=== PATIENT | male | born 1985 | race Caucasian/White ===

== ENCOUNTER 2021-03-17 22:27 | Observation (INO) | payer MEDICAID, SELFPAY ==
[2021-03-17 22:30] VITALS: BP 128/93; PULSE 86; RESP 18; TEMP 36.9; O2SAT 97
[2021-03-17 22:59] LABS: Abs Immature Grans 0.03 10^3/uL (0.0-0.06); Absolute Basophil Count 0.08 10^3/uL (0.0-0.2); Absolute Eosinophil Count 0.23 10^3/uL (0.0-0.7); Absolute Lymphocyte Count 3.21 10^3/uL (1.2-3.4); Absolute Monocyte Count 0.67 10^3/uL (0.1-0.8); Absolute Neutrophil Count 5.32 10^3/uL (1.2-6.7); Basophils % 0.8; Eosinophils % 2.4; HCT 46.6 % (40.0-50.0); HGB 15.3 g/dL (13.5-17.5); Immature Grans % 0.3; Lymphocytes % 33.6; MCH 29.8 pg (27.0-33.0); MCHC 32.8 % (32.0-36.0); MCV 90.7 fL (80-95); MPV 9.7 fL (8.0-11.0); Neutrophils % 55.9; Nucleated RBC 0 %; Platelet Count 330 10^3/uL (130-400); RBC 5.14 10^6/uL (4.36-5.78); RDW 12.2 % (11.8-14.1); RDW-SD 40.6 fL; WBC 9.54 10^3/uL (4.4-10.8)
[2021-03-17 23:03] LABS: Bilirubin Negative (Negative); Blood Negative (Negative); Clarity Clear (Clear); Glucose Negative (Negative); Ketones Negative (Negative); Leukocyte Esterase Negative (Negative); Nitrite Negative (Negative); Specific Gravity >= 1.030 (1.005-1.025); Urobilinogen 0.2 EU/dL (Up TO 0.2)
[2021-03-17 23:13] LABS: *AMPHETAMINES SCREEN URINE Negative (Negative); *BARBITURATES SCREEN URINE Negative (Negative); *BENZODIAZEPINES SCREEN URINE Negative (Negative); Cannabinoids THC Negative (Negative); Cocaine Screen,Urine Negative (Negative); METHADONE URINE SCREEN Negative (Negative); OPIATES URINE SCREEN Negative (Negative)
[2021-03-17 23:14] LABS: Salicylate < 2.8 mg/dL (<2.8)
[2021-03-17 23:16] LABS: Tricyclic Antidepressants Negative (Negative)
--- NOTE | 2021-03-17 23:17 | W.ED.GENAD ---
Discharge Plan Disposition Patient Disposition: [facility] INPATIENT Condition: Stable Discharge Details Clinical Impression: Threatening to others Primary Care Provider: Unknown,Unknown ED Provider: Richard Moreno Home Meds and New Rx's Prescriptions: No Action bupropion HCl [Wellbutrin XL] 300 mg tablet extended release 24 hr 300 mg PO QAM Qty: 90 RF: 3 bupropion HCl 150 mg tablet extended release 24 hr 150 mg PO QAM Qty: 90 RF: 1 nicotine [Nicoderm CQ] 14 mg/24 hr patch 24 hour 1 patch transdermal DAILY Qty: 14 RF: 1 hydroxyzine HCl 25 mg tablet 50 mg PO QHS PRN (Reason: sleep) Qty: 180 RF: 3 sertraline 50 mg tablet 50 mg PO DAILY Qty: 90 RF: 1 Medical Decision Making 35 yo male who has a history of depression, anxiety, former alcohol abuse sober for over 4 months per patient, who denies drug use, comes in with mental health after he made threatening statements on facebook. Mental health reports that he resides at a intermediate house and apparently was making threats towards people on facebook which is why mental health was contacted. THey evaluated him and he did not seem concerned with what he had done/written. She felt he should be hospitalized for his threats he was making and he agreed to a voluntary psychiatric placement and was brought here. He is calm and cooperative on arrival. Is ambulatory without assistance with normal gait. He is caox4 with clear speech and has no complaints on exam. He denies drug use and denies SI. He states he does remember making the statements on facebook earlier and when asked if he still feels this way he shrugs his shoulders. He has no focal neuro deficits on exam. Will obtain routine labs and will need to stay at [facility] until psychiatric bed placement is found pt stable and labs unremarkable, no psych beds available, spoke who hospitalist who accepts for admission Differential Diagnosis Differential Diagnosis: homicidal, delerium, depression Lab Data Lab results reviewed: Yes I reviewed the patient's lab results. HPI General Mode of arrival: ambulatory. Date/Time Provider Initiated Documentation: 03/17/21 22:29. Limitations to Documentation: no limitations. Information obtained by: patient. History of Present Illness 35 year old M presents to the emergency department with the chief complaint of made threats on facebook, Patient started experiencing this day(s) (1) No relieving factors improve symptom(s), No exacerbating factors reported . Patient notes no other symptoms.. Related Data Home Medications Medication Instructions Recorded Confirmed bupropion HCl 300 mg 24 hr tablet, 300 mg PO QAM #90 tab 12/31/20 02/25/21 extended release bupropion HCl 150 mg 24 hr tablet, 150 mg PO QAM #90 tab 02/25/21 02/25/21 extended release hydroxyzine HCl 25 mg tablet 50 mg PO QHS PRN #180 tab 02/25/21 03/17/21 nicotine 14 mg/24 hr daily 1 patch TRANSDERMAL DAILY #14 ea 02/25/21 02/25/21 transdermal patch sertraline 50 mg tablet 50 mg PO DAILY #90 tab 02/25/21 02/25/21 Previous Rx's Medication Instructions Recorded bupropion HCl 300 mg 24 hr tablet, 300 mg PO QAM #90 tab 12/31/20 extended release bupropion HCl 150 mg 24 hr tablet, 150 mg PO QAM #90 tab 02/25/21 extended release hydroxyzine HCl 25 mg tablet 50 mg PO QHS PRN #180 tab 02/25/21 nicotine 14 mg/24 hr daily 1 patch TRANSDERMAL DAILY #14 ea 02/25/21 transdermal patch sertraline 50 mg tablet 50 mg PO DAILY #90 tab 02/25/21 Allergies Allergy/AdvReac Type Severity Reaction Status Date / Time No Known Allergies Allergy Verified 12/31/20 14:45 Review of Systems All systems reviewed & are unremarkable except as noted in HPI and below Constitutional Constitutional: Denies chills, Denies fever(s) and Denies weakness ENT Ears, Nose, Mouth, and Throat: Denies change in voice Cardiovascular Cardiovascular: Denies chest pain and Denies dyspnea Respiratory Respiratory: Denies cough and Denies dyspnea Gastrointestinal Gastrointestinal: Denies abdominal pain, Denies nausea and Denies vomiting Musculoskeletal Musculoskeletal: Denies joint swelling Neurologic Neurologic: Denies weakness [facility] Social History (Updated 02/25/21 @ 12:40 by Rosi Beck LPN) Smoking/Tobacco Use Status: Former Tobacco Use tobacco type: cigarettes Quit status: quit date established (quit 12/07/20) Smoking risk assessment performed?: Yes Alcohol Intake: former Previous attempts at quittin Counseling given: Yes (talking with a counselor) Drug use: Current Sobriety Substance use type: former substance user and marijuana Adopted: No Caregiver/Support person: No Foster care: No Household members: other Details: sober housing Housing: homeless Number of Children: 0 Communication Needs: None Education Level: high school Do you need help understanding health information?: Rarely 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 [employer] Pets and animals: No Sexually active: No Do you think of yourself as: straight/heterosexual Current gender identity: male What is your relationship status?: never How often do you talk on the phone with friends or family?: decline to answer How often do you get together with friends or relatives?: decline to answer Panel score (0-1 are the most socially isolated patients): 0 Janna/Scientology: Buddhist Special janna needs: No Seatbelt use: always Helmet use: Yes Helmet use: never Drive intox or ride w/intox fast food delivery driver: No Working smoke detector in home: Yes Fire extinguisher in home: Yes Carbon monox detector in home: Yes Do you feel safe at home: Yes Exam Const General: no acute distress Orientation: alert HENWY Head: normal to inspection Ears: external ears normal General nose exam: external nose normal Mouth: moist mucous membranes Eyes General: appearance normal, both eyes and all related structures Neck Neck: normal visual inspection Resp Effort & Inspection: normal respiratory effort and able to speak in complete sentences Cardio Rate: regular rate Skin General skin exam: no rashes or lesions noted Neuro General: patient alert and patient oriented x3 Extrem General: normal to inspection Psych Mental Status: mental status grossly normal Course Lab/Test Results Lab/Test Results: Laboratory Tests Range/Units 03/17/21 03/17/21 03/17/21 22:52 22:52 22:52 WBC (4.4-10.8) 10^3/uL 9.54 RBC (4.36-5.78) 10^6/uL 5.14 Hgb (13.5-17.5) g/dL 15.3 Hct (40.0-50.0) % 46.6 MCV (80-95) fL 90.7 MCH (27.0-33.0) pg 29.8 MCHC (32.0-36.0) % 32.8 RDW (11.8-14.1) % 12.2 Plt Count (130-400) 10^3/uL 330 MPV (8.0-11.0) fL 9.7 Immature Gran % 0.3 Neutrophils % 55.9 Lymphocytes % 33.6 Monocytes % 7.0 Eosinophils % 2.4 Basophils % 0.8 Nucleated RBC % % 0 Absolute Neutrophils (1.2-6.7) 10^3/uL 5.32 Absolute Lymphocytes (1.2-3.4) 10^3/uL 3.21 Absolute Monocytes (0.1-0.8) 10^3/uL 0.67 Absolute Eosinophils (0.0-0.7) 10^3/uL 0.23 Absolute Basophils (0.0-0.2) 10^3/uL 0.08 Urine Color (Yellow) Yellow Urine Clarity (Clear) Clear Urine pH (5-8) 6.0 Ur Specific [place] (1.005-1.025) >= 1.030 H Urine Protein (Negative) mg/dL Negative Urine Ketones (Negative) mg/dL Negative Urine Blood (Negative) Negative Urine Nitrite (Negative) Negative Urine Bilirubin (Negative) Negative Urine Urobilinogen (Up TO 0.2) EU/dL 0.2 Ur Leukocyte Esterase (Negative) Negative Urine Glucose (Negative) mg/dL Negative Urine Opiates Screen (Negative) Negative Urine Methadone Screen (Negative) Negative Ur Barbiturates Screen (Negative) Negative Ur Tricyclics Screen (Negative) Negative Ur Amphetamines Screen (Negative) Negative U Benzodiazepines Scrn (Negative) Negative Urine Cocaine Screen (Negative) Negative Ur THC Screen (Negative) Negative
[2021-03-17 23:18] LABS: ALT 42 U/L (16-63); AST 18 U/L (15-37); Albumin 4.3 g/dL (3.4-5.0); Alkaline Phosphatase 97 U/L (46-116); Anion Gap 8.5 mmol/L (3-11); BUN 19 mg/dL (7-18); Bilirubin, Total 0.3 mg/dL (0.2-1.0); CO2 30.5 mmol/L (21.0-32.0); CREATININE 1.1 mg/dL (0.70-1.30); Calcium 9.1 mg/dL (8.5-10.1); Chloride 104 mmol/L (98-107); Glucose 89 mg/dL (74-106); Potassium 3.8 mmol/L (3.5-5.1); Sodium 143 mmol/L (136-145); Total Protein 7.4 g/dL (6.4-8.2)
[2021-03-17 23:19] LABS: Acetaminophen < 2 ug/mL (10-30)
[2021-03-17 23:25] LABS: ETHANOL BLOOD < 3.0 mg/dL (<3)
[2021-03-17] MEDS: hydrOXYzine PAMOATE 25 MG CAP 50 MG PO (23:25)
[2021-03-17 23:57] LABS: Source Nasal/Nares
--- NOTE | 2021-03-18 | W.PM.HP.N ---
Date of service: 03/17/21 Time of Service: 23:55 Assessment and Plan Assessment and plan (1) Homicidal ideation: Start date: 03/17/21 Status: Acute Assessment and plan: This is a 35-year-old gentleman who was having thoughts of harming others though is nonspecific to this examiner whether they were actually homicidal but severe to where mental health gait the patient no choice as to being admitted for psychiatric evaluation and treatment. Patient voluntary because he felt that he would be involuntarily admitted if he refused. He is cooperating and he is open to inpatient psychiatric evaluation and treatment. 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 He had not been drinking alcohol recently urine drug screen and alcohol screens were negative upon admission. Mental health consultation is in place with inpatient placement voluntarily being investigated. (2) Depression: Status: Chronic Assessment and plan: Patient will be continued on Wellbutrin ER 450 mg with sertraline 50 mg daily. He also has hydroxyzine to aid with insomnia. Qualifiers: Active/Remission status: currently active Depression Type: major depressive disorder Major depression episode severity: moderate Major depression recurrence: recurrent Qualified Code(s): F33.1 - Major depressive disorder, recurrent, moderate (3) Nicotine dependence, other tobacco product, in remission: Status: Chronic Assessment and plan: Patient states that he has not been smoking recently and was offered NicoDerm transdermal patch which is on his outpatient medication list, this should be reconciled. History of Present Illness History of Present Illness Chief Complaint: Homicidal ideation Narrative: This is a 35-year-old male patient who states that he lives in his own apartment but was reportedly in a [facility] house where he was having conflict with other people on Facebook making threatening remarks about doing harm to people in his surroundings. He was reported to the face by Nafisa which is a girl that he is not not familiar with by his verbal history. History of first significant benefit decreased recall slipping a month after mental health was involved and he stated that he did not have a choice that time and voluntarily which he has done. He is willing to be placed in inpatient psychiatric care for evaluation. He has never had inpatient psychiatric care by history. He has been sober for 4 months having previous alcohol abuse. 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 He is calm during conversation and manifesting no abnormal thought processes but is withdrawn somewhat during conversation is confrontational and passive as to either admitting or denying accusations which brought him to the hospital. I am not aware of his actual remarks on Facebook that there was significant enough to where there was concern for significant harm such as homicide. He did not manifest any specific thoughts toward others to the examiner. Patient did not admit to any increased anxiety or agitation and agitated has minimal conversation. Review of Systems Narrative: 13 point review of systems otherwise unrevealing or stable. [facility] Social History (Updated 02/25/21 @ 12:40 by Rosi Beck LPN) Smoking/Tobacco Use Status: Former Tobacco Use tobacco type: cigarettes Quit status: quit date established (quit 12/07/20) Smoking risk assessment performed?: Yes Alcohol Intake: former Previous attempts at quittin Counseling given: Yes (talking with a counselor) Drug use: Current Sobriety Substance use type: former substance user and marijuana Details: Currently lives in a Sober House and has been sober x 4 months. Using Nicotine patch to quit smoking. 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 [employer] Pets and animals: No Sexually active: No Do you think of yourself as: straight/heterosexual Current gender identity: male What is your relationship status?: never How often do you talk on the phone with friends or family?: decline to answer How often do you get together with friends or relatives?: decline to answer Panel score (0-1 are the most socially isolated patients): 0 Janna/Congregation: Voodoo Special janna needs: No Seatbelt use: always Helmet use: Yes Helmet use: never Drive intox or ride w/intox furniture mover driver: No Working smoke detector in home: Yes Fire extinguisher in home: Yes Carbon monox detector in home: Yes Do you feel safe at home: Yes Do you feel safe in your relationship?: Yes Meds Allergies and Home Medications Allergies Allergy/AdvReac Type Severity Reaction Status Date / Time No Known Allergies Allergy Verified 12/31/20 14:45 Home Medications Medication Instructions Recorded Confirmed Type bupropion HCl 300 mg 24 hr tablet, 300 mg PO QAM #90 tab 12/31/20 03/18/21 Rx extended release bupropion HCl 150 mg 24 hr tablet, 150 mg PO QAM #90 tab 02/25/21 03/18/21 Rx extended release hydroxyzine HCl 25 mg tablet 50 mg PO QHS PRN #180 tab 02/25/21 03/18/21 Rx nicotine 14 mg/24 hr daily 1 patch TRANSDERMAL DAILY #14 ea 02/25/21 03/18/21 Rx transdermal patch sertraline 50 mg tablet 50 mg PO DAILY #90 tab 02/25/21 03/18/21 Rx Exam Narrative Exam Narrative: General: Patient appears appropriate for age, slightly flattened affect with fair eye contact. He is alert and oriented x3. He is in no acute distress. He is well-groomed, thin body build with mesomorphic features and appears overall healthy. HEENT: Normocephalic, eyes with pupils equal and reactive to light symmetrically, extraocular movement intact and sclera anicteric. Neck: Supple without JVD and no palpable thyromegaly. Back: Normal posture without CVA tenderness. Lungs: Clear to auscultation and percussion with no adventitious sounds. Normal inspiratory to expiratory phase ratio. Heart: Regular rate and rhythm with no murmurs or gallops appreciated. Abdomen: Normal contour, soft nontender to palpation with no palpable hepatosplenomegaly. Genitalia/rectal: Exam deferred. Extremities: Without clubbing, cyanosis or pitting edema. Peripheral pulses intact. Skin: Tanned over sun exposed areas otherwise normal color, warm and dry. No rashes noted. Neuro: Cranial nerves II to XII grossly intact, no focalizing motor deficits. Psych: Flattened affect with little variation. Mood appears in different without depression or manic symptoms manifested during conversation. No abnormal thought processes with minimal conversation. Remote and recent memory appear to be grossly intact though there is discrepancy as to where the patient is living by history from the ED versus patient's history to this examiner. Results Labs Result diagrams: 03/18/21 06:35 03/18/21 06:35 Labs: Laboratory Results - last 24 hr 03/17/21 03/17/21 03/17/21 22:52 22:52 22:52 WBC 9.54 RBC 5.14 Hgb 15.3 Hct 46.6 MCV 90.7 MCH 29.8 MCHC 32.8 RDW 12.2 Plt Count 330 MPV 9.7 Immature Gran % 0.3 Neutrophils % 55.9 Lymphocytes % 33.6 Monocytes % 7.0 Eosinophils % 2.4 Basophils % 0.8 Nucleated RBC % 0 Absolute Neutrophils 5.32 Absolute Lymphocytes 3.21 Absolute Monocytes 0.67 Absolute Eosinophils 0.23 Absolute Basophils 0.08 Sodium 143 Potassium 3.8 Chloride 104 Carbon Dioxide 30.5 Anion Gap 8.5 BUN 19 H Creatinine 1.1 Estimated GFR/1.73 m2 >= 60.00 Glucose 89 Calcium 9.1 Total Bilirubin 0.3 AST 18 ALT 42 Alkaline Phosphatase 97 Total Protein 7.4 Albumin 4.3 TSH 3.20 Urine Color Urine Clarity Urine pH Ur Specific [place] Urine Protein Urine Ketones Urine Blood Urine Nitrite Urine Bilirubin Urine Urobilinogen Ur Leukocyte Esterase Urine Glucose Salicylates Urine Opiates Screen Urine Methadone Screen Acetaminophen < 2 Ur Barbiturates Screen Ur Tricyclics Screen Ur Amphetamines Screen U Benzodiazepines Scrn Urine Cocaine Screen Ur THC Screen Ethyl Alcohol < 3.0 COVID-19 Source 03/17/21 03/17/21 03/17/21 22:52 22:52 22:52 WBC RBC Hgb Hct MCV MCH MCHC RDW Plt Count MPV Immature Gran % Neutrophils % Lymphocytes % Monocytes % Eosinophils % Basophils % Nucleated RBC % Absolute Neutrophils Absolute Lymphocytes Absolute Monocytes Absolute Eosinophils Absolute Basophils Sodium Potassium Chloride Carbon Dioxide Anion Gap BUN Creatinine Estimated GFR/1.73 m2 Glucose Calcium Total Bilirubin AST ALT Alkaline Phosphatase Total Protein Albumin TSH Urine Color Yellow Urine Clarity Clear Urine pH 6.0 Ur Specific [place] >= 1.030 H Urine Protein Negative Urine Ketones Negative Urine Blood Negative Urine Nitrite Negative Urine Bilirubin Negative Urine Urobilinogen 0.2 Ur Leukocyte Esterase Negative Urine Glucose Negative Salicylates < 2.8 Urine Opiates Screen Negative Urine Methadone Screen Negative Acetaminophen Ur Barbiturates Screen Negative Ur Tricyclics Screen Negative Ur Amphetamines Screen Negative U Benzodiazepines Scrn Negative Urine Cocaine Screen Negative Ur THC Screen Negative Ethyl Alcohol COVID-19 Source 03/17/21 23:45 WBC RBC Hgb Hct MCV MCH MCHC RDW Plt Count MPV Immature Gran % Neutrophils % Lymphocytes % Monocytes % Eosinophils % Basophils % Nucleated RBC % Absolute Neutrophils Absolute Lymphocytes Absolute Monocytes Absolute Eosinophils Absolute Basophils Sodium Potassium Chloride Carbon Dioxide Anion Gap BUN Creatinine Estimated GFR/1.73 m2 Glucose Calcium Total Bilirubin AST ALT Alkaline Phosphatase Total Protein Albumin TSH Urine Color Urine Clarity Urine pH Ur Specific [place] Urine Protein Urine Ketones Urine Blood Urine Nitrite Urine Bilirubin Urine Urobilinogen Ur Leukocyte Esterase Urine Glucose Salicylates Urine Opiates Screen Urine Methadone Screen Acetaminophen Ur Barbiturates Screen Ur Tricyclics Screen Ur Amphetamines Screen U Benzodiazepines Scrn Urine Cocaine Screen Ur THC Screen Ethyl Alcohol COVID-19 Source Nasal/Nares Last Vital Signs Temp 36.9 C 03/17/21 22:30 Pulse 86 03/17/21 22:30 Resp 18 03/17/21 22:30 BP 128/93 H 03/17/21 22:30 Pulse Ox 97 03/17/21 22:30
[2021-03-18] MEDS: Nicotine 14 MG/24 HR PATCH TD (00:04)
[2021-03-18 00:50] LABS: COVID-19 PCR Negative (Negative)
[2021-03-18 00:57] VITALS: BP 126/81; PULSE 60; RESP 18; TEMP 36; O2SAT 97
[2021-03-18 06:46] VITALS: BP 119/78; PULSE 70; RESP 16; TEMP 36.7; O2SAT 100
[2021-03-18 07:21] LABS: Abs Immature Grans 0.04 10^3/uL (0.0-0.06); Absolute Basophil Count 0.06 10^3/uL (0.0-0.2); Absolute Eosinophil Count 0.29 10^3/uL (0.0-0.7); Absolute Lymphocyte Count 2.97 10^3/uL (1.2-3.4); Absolute Monocyte Count 0.71 10^3/uL (0.1-0.8); Absolute Neutrophil Count 3.81 10^3/uL (1.2-6.7); Basophils % 0.8; Eosinophils % 3.7; HCT 44.1 % (40.0-50.0); HGB 14.4 g/dL (13.5-17.5); Immature Grans % 0.5; Lymphocytes % 37.7; MCH 29.2 pg (27.0-33.0); MCHC 32.7 % (32.0-36.0); MCV 89.5 fL (80-95); MPV 10.2 fL (8.0-11.0); Neutrophils % 48.3; Nucleated RBC 0 %; Platelet Count 291 10^3/uL (130-400); RBC 4.93 10^6/uL (4.36-5.78); RDW 12.5 % (11.8-14.1); RDW-SD 41.1 fL; WBC 7.88 10^3/uL (4.4-10.8)
[2021-03-18 08:04] LABS: ALT 35 U/L (16-63); AST 17 U/L (15-37); Albumin 3.6 g/dL (3.4-5.0); Alkaline Phosphatase 72 U/L (46-116); BUN 18 mg/dL (7-18); Bilirubin, Total 0.7 mg/dL (0.2-1.0); CREATININE 1.1 mg/dL (0.70-1.30); Calcium 8.5 mg/dL (8.5-10.1); Chloride 107 mmol/L (98-107); Glucose 90 mg/dL (74-106); Potassium 3.3 mmol/L (3.5-5.1); Sodium 142 mmol/L (136-145); Total Protein 6.6 g/dL (6.4-8.2)
[2021-03-18] MEDS: buPROPion-XL 150 MG TABCR 450 MG PO (09:05)
[2021-03-18] MEDS: Sertraline 50 MG TAB PO (09:05)
--- NOTE | 2021-03-18 09:19 | PDOC.MHCN ---
Date of service: 03/17/21 Time of Service: 22:01 Mental Health Crisis Note Presenting Issue How did you arrive at the ED and why did you come: Client arrived to ED via [facility] transport. Client was brought in due to concerns of homicidal ideation and threats he made on facebook through a series of posts as well a suicidal statement he made which were shown to this clinician by [facility] officer. Client also reported that there were people out to get him and that someone had spread a rumor about him about 2.5 to 3 years ago and that he ad been harassed and threatened since then. Client also stated he had written mulitple letters to [facility] as well as the [place] president about this ti find answers and that they are refusing to tell him what's going on. Precipitating Factors Client denied SI/HI during this assessment. Client presented with some delusional and paranoid thinking. Disposition BEHAVIOR: Client presented as not forthcoming during this assessment and also contradicted himself a few times during this assessment. Client presented with poor insight, impaired judgment and poor thought process during this assessment. EYE CONTACT: Client maintained minimal eye contact and kept his eye down throughout this assessment. MOOD: Client presented with angry and irritable mood AFFECT: Client presented with flat affect APPETITE: Client reported he had good appetite SLEEP(trouble falling/staying asleep: Client reported difficulty falling and staying asleep. Plan This clinician was unable to safety plan with client based on the above stated concerns as well as client's current presentation during this assessment. This clinician also explained to client that based on the current concerns of homicidal ideations an EE or warrant may be sought the [facility] assessed and see this to be a necessary process in order to get him treatment. Client is agreeable to seeking treatment voluntarily at this time. None of his labs were ready at the time of this assessment and there no beds available at the time of this assessment as well. No referrals were sent to in-patient facilities at this time. Client will need to be reassessed daily by [facility] and a plan would be made based his presentation and the assessment made. Signature Clinician's Name/Title: Zahira Mcmahon / KIANNA clinician, [facility]
--- NOTE | 2021-03-18 09:34 | PDOC.MHCN ---
Date of service: 03/18/21 Time of Service: 09:34 Mental Health Crisis Note Presenting Issue How did you arrive at the ED and why did you come: Pt arrived on 03.17.2021 after police picked him up when a community member called them with concerns that he was making homicidal statements to her on her private messenger on Facebook. He was initially evaluated by JOSE EDUARDO Mcmahon and was informed that he accept voluntary or he would go involuntary due to the number of post also on his public Facebook account. Precipitating Factors Pt is denying SI and HI rating both on at a 0/10. Disposition BEHAVIOR: Pt is cooperative however, minimizing his behaviors on his Facebook page as well as threats being made to others. The message that the Pt sent to the unknown female read Thiago Skelton, my name is Lyle Carroll and I'm going around warning people that I will be inflicting serious pain, suffering and to the world soon, the only way to stop this is to kill me, so if you could let people know for me that I live at [address] [place] [address] in [facility], I would greatly appreciate it. Thank you (kissing [email or web address]). EYE CONTACT: Pt makes good eye contact. MOOD: Pt is diagnosed with depression and takes medications for this diagnosis. He presents and not affected by this situation. AFFECT: Affect is flat. APPETITE: Pt reported his appetite is fine. SLEEP(trouble falling/staying asleep: Pt reported that he slept fine last night. Plan Pt is still willing to accept voluntary admission understanding that if he wants to leave [facility] would seriously consider an EE/Warrant. At this time the Pt meets criteria for a hospital admission. This clinician and the medical staff are concerned about the Pt being released to the community without a through evaluation and treatment. Signature Clinician's Name/Title: Yoli Sheets MS, [facility] Emergency Services Clinician, [facility]
[2021-03-18 09:46] LABS: Magnesium 2.1 mg/dL (1.8-2.4)
[2021-03-18] MEDS: Potassium Chloride 20 MEQ TABCR 40 MEQ PO (09:59)
[2021-03-18] MEDS: Nicotine 2 MG LOZG SUC (12:20)
--- NOTE | 2021-03-18 13:42 | CMSP_ITS ---
- If Service Date Differs Date of service: 03/18/21 Time of Service: 13:42 Care Management Safety Plan Status: Voluntary - Reason for Wait Reason for Wait: Inpatient Admission Lyle is a 35 year old male voluntarily admitted to [facility] after evaluation by [facility]. Per report Lyle expresses HI towards people involved in the illuminati. He subsequently messaged an unrelated female through social media who alerted police about his threatening statements. CM coordinated a huddle with CC, RN Senior Portfolio Analyst, Primary RN, FATIMAH and CM. During huddle CM was informed that staff found a butter knife near pts room. Staff have been informed that paper utensils should be used in the transitional area by both pt and staff from this point forward. [facility] and [facility] are unfamiliar to patient, and close monitoring by staff is recommended. Up to this point he has been cooperative and pleasant in interaction, however staff must remain vigilant due to concerning nature of threats and follow safety plan as directed below. VOLUNTARY FOR INPATIENT PSYCHIATRIC STABILIZATION. Patient is appropriate in all interactions since arriving at [facility]; Pt has demonstrated appropriate coping and communication skills, has articulated his or her needs and concerns and is fully engaged during staff interactions. Safety plan has been established with patient, and care team, to adhere to patient goals, identify restrictions based on behavioral status, address nutrition, and determine allowed personal belongings, tools for hygiene and personal care. Determine level of activity including ambulation, level of supervision, visitors, and determine privileges based on behaviors and level of engagement by pt. SAFETY PLAN: 1. Will remain on suicide precautions. In Paper Clothes 2. Will remain in room under direct supervision of one-on-one staff at all times provided by [facility]; EDELMIRA, SAND WORKER drywall metal stud worker. 3. May have paper cups, plates, finger foods as well as a cardboard spoon with which to eat meals. 4. Follow [facility] Management of the Admitted Behavioral Health Patient policy. 5. Comfort bath system only. 6. No personal belongings 7. Visitors-No visitors at this time 8. Activities: Soft cart items at RN discretion, TV use ([facility] 9. Bathroom privileges in room without limitation 10. Phone: May use [facility] phone at RN discretion 11. Due to VOLUNTARY status, if patient wishes to leave [facility], staff will contact [facility] Crisis Screener ([phone]) and On-Call Facility Specialist ([phone]) as soon as possible. In the event of elopement, notify [facility] Police ([phone]). Patient is currently voluntarily at [facility] and seeking inpatient admission when a bed becomes available. [facility] Frontline Network Consultant will continue seeking placement. Please contact the N[facility] Facility Specialist ([phone]) and [facility] Network Consultant ([phone]) for any needed changes in the Safety Plan. Safety plan has been provided to interdepartmental care team.
--- NOTE | 2021-03-18 14:04 | CMPROGNOTE_ITS ---
- If Service Date Differs Date of service: 03/18/21 Time of Service: 14:04 Care Management Progress Note S/O: Lyle was partially sitting up in bed when CM met with him. He was polite, cooperative, easy to engage in conversation and asking for needs appropriately. CM coordinated a huddle with CC, RN Vp Research, Primary RN, [facility] and CM. 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 Lyle was brought to the ER last night by police after they received notification of a threatening message he sent to a girl that was unfamilar to him. Lyle has accepted voluntary admission to [facility] understanding that if he wants to leave [facility] would seriously consider an EE/Warrant. He is waiting for placement to a psych facility at this time. Referrals have been sent to [place], [place], [facility], [facility], [place] and [facility]. JEFFERY is currently [facility] CM notified [facility] department at at this time they are willing to provide transportation today. CM continues to support patient and discharge needs. A: 35 year old male admitted to [facility] on 03/17/21 for Homicidal Ideation and Depression. P: Lyle is aware that he is voluntarily admitted to [facility] at this time, however given the nature of his threats and social media posts [facility] will consider an EE/ Warrant if he decides to leave. Lyle has been medically cleared by Dr. Hurt to transfer to a psych facility via [facility] pending acceptance. He has never received inpatient psych treatment before and is willing to transfer to any with a bed offer. JEFFERY is waiting for a doc to doc review, and are awaiting next steps. Lyle will follow up with [facility] and out patient providers following discharge from Psych facility.
--- NOTE | 2021-03-18 14:43 | DSE_ITS ---
Date of service: 03/18/21 Time of Service: 14:43 DS: Diagnosis Discharge Diagnosis (1) Homicidal ideation: Status: Acute (2) Threatening to others: Status: Acute (3) Depression: Status: Chronic (4) Nicotine dependence, other tobacco product, in remission: Status: Chronic (5) Hypokalemia: Status: Resolved (6) COVID-19 ruled out by laboratory testing: Status: Ruled-out Discharge Plan Disposition Patient Disposition: [facility] Condition: Stable Discharge Details Reason For Visit: Homicidal Ideation, Depression Admit Date/Time: 03/17/21 23:52 Admit Provider: John Hernández Attending Provider: John Hernández Primary Care Provider: Unknown,Unknown Hospital Course Hospital Course: Mr Carroll is a 35 year old male with PMHx of anxiety and depression who was observed on [facility] hospitalist service from 03/17/21 until 03/18/21 while awaiting a psychiatric bed on voluntary basis having expressed homicidal and harmful ideation toward others on facebook.The patient was maintained on his home medications. He has been cooperative and has not demonstrated any violent or unsafe behavior. He did have mild hypokalemia on labs which has been repleted, so he has been medically cleared. He tested negative for COVID-19, but is not vaccinated against COVID-19, nor does he agree to the vaccine at this time despite counseling. He was accepted in transfer to [facility] for further psychiatric stabilization by Dr Moyer. He is medically stable for transfer. The list of medications below reflects the patient's outpatient medications. Please, look at MAR for list of his inpatient medications. Home Meds and New Rx's Prescriptions: No Action bupropion HCl [Wellbutrin XL] 300 mg tablet extended release 24 hr 300 mg PO QAM Qty: 90 RF: 3 bupropion HCl 150 mg tablet extended release 24 hr 150 mg PO QAM Qty: 90 RF: 1 nicotine [Nicoderm CQ] 14 mg/24 hr patch 24 hour 1 patch transdermal DAILY Qty: 14 RF: 1 hydroxyzine HCl 25 mg tablet 50 mg PO QHS PRN (Reason: sleep) Qty: 180 RF: 3 sertraline 50 mg tablet 50 mg PO DAILY Qty: 90 RF: 1 Discharge Instructions Stand Alone Forms: Nursing Discharge Form Activity:: Activity as Tolerated Equipment/Supplies:: No Equipment Needed Diet:: As Tolerated Discharge Orders Discharge Orders: Discharge Order (Routine); Ordered 03/18/21 Ordered By: Azra Hurt DS: Summary Time Spent with Patient providing and/or coordinating discharge services: Greater than 30 minutes Status at Discharge Functional status at discharge: independent ambulation Overall status at discharge: patient is not back to baseline Mental Status: mental status grossly normal Speech and Movement: speech and movement normal Mood: congruent mood Affect: normal affect Exam Narrative Exam Narrative: General: Pleasant and polite male, A&Ox3, sitting up comfortably in bed, not in acute distress HEENT: EOMI, MMM Heart: RRR< no m/r/g Lungs: CTAB Abdomen: soft, nontender, nondistended Extremities: no edema BLE's Psych Mental Status: mental status grossly normal Speech and Movement: speech and movement normal Mood: congruent mood Affect: normal affect DS: Data Vitals/I&O Vitals and I&O: Vital Signs Temperature 36.7 C 03/18/21 06:46 Temperature Source Tympanic 03/18/21 06:46 Pulse 70 03/18/21 06:46 Pulse Rhythm Regular 03/18/21 09:00 Respiratory Rate 16 03/18/21 06:46 Respiratory Effort Non-Labored 03/18/21 09:00 Respiratory Depth Normal 03/18/21 09:00 Respiratory Pattern Normal 03/18/21 09:00 Blood Pressure 119/78 03/18/21 06:46 Blood Pressure Position Sitting 03/17/21 22:30 Pulse Oximetry 100 03/18/21 06:46 Oxygen Delivery Method Room Air 03/18/21 06:46 Oxygen Flow Rate 0 03/18/21 06:46 Pain Level 0 03/18/21 06:46 Intake & Output 03/17/21 03/18/21 03/18/21 23:59 11:59 23:59 Intake Total 360 / 960 600 / 960 Balance 360 / 960 600 / 960 Weight 81.647 kg 81.647 kg Intake: Oral 360 / 960 600 / 960 Other: Voiding Methods Toilet Data Completed and Pending Labs on day of discharge: Labs from last 24 hours 03/18/21 03/18/21 03/18/21 06:35 06:35 06:35 WBC 7.88 RBC 4.93 Hgb 14.4 Hct 44.1 MCV 89.5 MCH 29.2 MCHC 32.7 RDW 12.5 Plt Count 291 MPV 10.2 Immature Gran % 0.5 Neutrophils % 48.3 Lymphocytes % 37.7 Monocytes % 9.0 Eosinophils % 3.7 Basophils % 0.8 Nucleated RBC % 0 Absolute Neutrophils 3.81 Absolute Lymphocytes 2.97 Absolute Monocytes 0.71 Absolute Eosinophils 0.29 Absolute Basophils 0.06 Sodium 142 Potassium 3.3 L Chloride 107 Carbon Dioxide 30.0 Anion Gap 5.0 BUN 18 Creatinine 1.1 Estimated GFR/1.73 m2 >= 60.00 Glucose 90 Calcium 8.5 Magnesium 2.1 Total Bilirubin 0.7 AST 17 ALT 35 Alkaline Phosphatase 72 Total Protein 6.6 Albumin 3.6 TSH Urine Color Urine Clarity Urine pH Ur Specific [place] Urine Protein Urine Ketones Urine Blood Urine Nitrite Urine Bilirubin Urine Urobilinogen Ur Leukocyte Esterase Urine Glucose Salicylates Urine Opiates Screen Urine Methadone Screen Acetaminophen Ur Barbiturates Screen Ur Tricyclics Screen Ur Amphetamines Screen U Benzodiazepines Scrn Urine Cocaine Screen Ur THC Screen Ethyl Alcohol COVID-19 Source SARS-CoV-2 (PCR) 03/17/21 03/17/21 03/17/21 23:45 22:52 22:52 WBC RBC Hgb Hct MCV MCH MCHC RDW Plt Count MPV Immature Gran % Neutrophils % Lymphocytes % Monocytes % Eosinophils % Basophils % Nucleated RBC % Absolute Neutrophils Absolute Lymphocytes Absolute Monocytes Absolute Eosinophils Absolute Basophils Sodium Potassium Chloride Carbon Dioxide Anion Gap BUN Creatinine Estimated GFR/1.73 m2 Glucose Calcium Magnesium Total Bilirubin AST ALT Alkaline Phosphatase Total Protein Albumin TSH Urine Color Yellow Urine Clarity Clear Urine pH 6.0 Ur Specific [place] >= 1.030 H Urine Protein Negative Urine Ketones Negative Urine Blood Negative Urine Nitrite Negative Urine Bilirubin Negative Urine Urobilinogen 0.2 Ur Leukocyte Esterase Negative Urine Glucose Negative Salicylates Urine Opiates Screen Negative Urine Methadone Screen Negative Acetaminophen Ur Barbiturates Screen Negative Ur Tricyclics Screen Negative Ur Amphetamines Screen Negative U Benzodiazepines Scrn Negative Urine Cocaine Screen Negative Ur THC Screen Negative Ethyl Alcohol COVID-19 Source Nasal/Nares SARS-CoV-2 (PCR) Negative 03/17/21 03/17/21 03/17/21 22:52 22:52 22:52 WBC 9.54 RBC 5.14 Hgb 15.3 Hct 46.6 MCV 90.7 MCH 29.8 MCHC 32.8 RDW 12.2 Plt Count 330 MPV 9.7 Immature Gran % 0.3 Neutrophils % 55.9 Lymphocytes % 33.6 Monocytes % 7.0 Eosinophils % 2.4 Basophils % 0.8 Nucleated RBC % 0 Absolute Neutrophils 5.32 Absolute Lymphocytes 3.21 Absolute Monocytes 0.67 Absolute Eosinophils 0.23 Absolute Basophils 0.08 Sodium Potassium Chloride Carbon Dioxide Anion Gap BUN Creatinine Estimated GFR/1.73 m2 Glucose Calcium Magnesium Total Bilirubin AST ALT Alkaline Phosphatase Total Protein Albumin TSH 3.20 Urine Color Urine Clarity Urine pH Ur Specific [place] Urine Protein Urine Ketones Urine Blood Urine Nitrite Urine Bilirubin Urine Urobilinogen Ur Leukocyte Esterase Urine Glucose Salicylates < 2.8 Urine Opiates Screen Urine Methadone Screen Acetaminophen Ur Barbiturates Screen Ur Tricyclics Screen Ur Amphetamines Screen U Benzodiazepines Scrn Urine Cocaine Screen Ur THC Screen Ethyl Alcohol < 3.0 COVID-19 Source SARS-CoV-2 (PCR) 03/17/21 22:52 WBC RBC Hgb Hct MCV MCH MCHC RDW Plt Count MPV Immature Gran % Neutrophils % Lymphocytes % Monocytes % Eosinophils % Basophils % Nucleated RBC % Absolute Neutrophils Absolute Lymphocytes Absolute Monocytes Absolute Eosinophils Absolute Basophils Sodium 143 Potassium 3.8 Chloride 104 Carbon Dioxide 30.5 Anion Gap 8.5 BUN 19 H Creatinine 1.1 Estimated GFR/1.73 m2 >= 60.00 Glucose 89 Calcium 9.1 Magnesium Total Bilirubin 0.3 AST 18 ALT 42 Alkaline Phosphatase 97 Total Protein 7.4 Albumin 4.3 TSH Urine Color Urine Clarity Urine pH Ur Specific [place] Urine Protein Urine Ketones Urine Blood Urine Nitrite Urine Bilirubin Urine Urobilinogen Ur Leukocyte Esterase Urine Glucose Salicylates Urine Opiates Screen Urine Methadone Screen Acetaminophen < 2 Ur Barbiturates Screen Ur Tricyclics Screen Ur Amphetamines Screen U Benzodiazepines Scrn Urine Cocaine Screen Ur THC Screen Ethyl Alcohol COVID-19 Source SARS-CoV-2 (PCR) [facility] Medical History (Updated 03/18/21 @ 14:45 by Azra Hurt MD) Alcohol dependence in early full remission Anxiety Depression 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 Using Nicotine patch to quit smoking. 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 [employer] Pets and animals: No Sexually active: No Do you think of yourself as: straight/heterosexual Current gender identity: male What is your relationship status?: never How often do you talk on the phone with friends or family?: decline to answer How often do you get together with friends or relatives?: decline to answer Panel score (0-1 are the most socially isolated patients): 0 Janna/Religious: Holiness Special janna needs: No Seatbelt use: always Helmet use: Yes Helmet use: never Drive intox or ride w/intox short haul driver: No Working smoke detector in home: Yes Fire extinguisher in home: Yes Carbon monox detector in home: Yes Do you feel safe at home: Yes Do you feel safe in your relationship?: Yes
[2021-03-18 15:53] LABS: Potassium 4.1 mmol/L (3.5-5.1)
== END 2021-03-18 18:14 | disposition short-term general hospital (02) ==
LOC: ER 03-18 00:24 → MS 03-18 00:26
PROVIDERS: Internal Medicine; Admitting Provider Family Medicine; Emergency Provider Emergency Medicine; Visit Provider Family Medicine
DX: R45.850 Homicidal ideations (principal); F33.1 Major depressive disorder, recurrent, moderate; F10.11 Alcohol abuse, in remission; Z87.891 Personal history of nicotine dependence; Z20.822 Contact with and (suspected) exposure to COVID-19; E87.6 Hypokalemia
CPT/HCPCS: 36415; 80053; 80307; 87635; 99285; 80320; 80329; 81003; 83735; 84132; 84443; 85025; 99235; 99284; G0378

== ENCOUNTER 2022-01-27 03:08 | Outpatient (CLI) | payer MEDICAID, SELFPAY ==
[2022-01-27 13:57] LABS: Abs Immature Grans 0.08 10^3/uL (0.0-0.06); Absolute Basophil Count 0.08 10^3/uL (0.0-0.2); Absolute Eosinophil Count 0.17 10^3/uL (0.0-0.7); Absolute Lymphocyte Count 2.24 10^3/uL (1.2-3.4); Absolute Neutrophil Count 5.34 10^3/uL (1.2-6.7); HCT 45.6 % (40.0-50.0); HGB 15.3 g/dL (13.5-17.5); Lymphocytes % 26.6; MCH 29.6 pg (27.0-33.0); MCHC 33.6 % (32.0-36.0); MCV 88 fL (80-95); MPV 9.3 fL (8.0-11.0); Monocytes % 5.9; Neutrophils % 63.5; Platelet Count 289 10^3/uL (130-400); RBC 5.17 10^6/uL (4.36-5.78); RDW 12.3 % (11.8-14.1); RDW-SD 40.1 fL; WBC 8.41 10^3/uL (4.4-10.8)
[2022-01-27 14:05] LABS: Hemoglobin A1C 5.4 % (<5.7)
[2022-01-27 14:31] LABS: Anion Gap 11.3 mmol/L (3-11); BUN 14 mg/dL (7-18); CO2 27.7 mmol/L (21.0-32.0); CREATININE 1.1 mg/dL (0.70-1.30); Calcium 8.7 mg/dL (8.5-10.1); Calculated LDL 177 mg/dL (<100); Chloride 102 mmol/L (98-107); Cholesterol 276 mg/dL (<200); Glucose 91 mg/dL (74-106); HDL Cholesterol 56 mg/dL (40-60); Potassium 3.8 mmol/L (3.5-5.1); Sodium 141 mmol/L (136-145); Triglyceride 219 mg/dL (<150)
[2022-01-27 22:43] LABS: Prolactin 54.2 ng/mL (2.1-17.7)
== END 2022-01-27 03:09 | disposition home or self-care (01) ==
LOC: LBO 03:08
PROVIDERS: PCP Internal Medicine; Visit Provider Nurse Practitioner Psychiatric/Mental Health
DX: F20.9 Schizophrenia, unspecified (principal); Z79.899 Other long term (current) drug therapy
CPT/HCPCS: 36415; 80048; 80061; 83036; 84146; 85025

== ENCOUNTER 2023-03-15 15:26 | Emergency (ER) | payer MEDICAID, SELFPAY ==
[2023-03-15 15:21] VITALS: BP 153/98; PULSE 120; RESP 18; TEMP 37; O2SAT 96
--- NOTE | 2023-03-15 15:33 | W.ED.GENAD ---
Discharge Plan Disposition Patient Disposition: Home Condition: Stable Discharge Details Clinical Impression: Alcohol intoxication Primary Care Provider: Unknown,Unknown ED Provider: Richard Moreno Home Meds and New Rx's Prescriptions: Continued clonidine 0.1 mg/24 hr patch weekly 1 patch transdermal QWEEK Qty: 4 1RF Patient Comments: Pt states he hasn't taken medication in over 3 weeks Rx Instructions: apply one patch a week to clean dry skin where you don't bend; rotate sites melatonin 3 mg tablet 9 mg PO HS PRN (Reason: sleep) Qty: 90 0RF Patient Comments: Pt states he hasn't taken medication in over 3 weeks Rx Instructions: 05/01/21-pt reports he takes 9mg qhs on discharge 04/03/21 [facility] hydroxyzine HCl 25 mg tablet 50 mg PO QHS PRN (Reason: sleep) Qty: 180 3RF Patient Comments: Pt states he hasn't taken medication in over 3 weeks sertraline 100 mg tablet 100 mg PO DAILY Patient Comments: Pt states he hasn't taken medication in over 3 weeks Rx Instructions: #30 filled on 04/03/21 [facility] risperidone [Risperdal] 4 mg tablet 4 mg PO BID Qty: 60 0RF Patient Comments: Pt states he hasn't taken medication in over 3 weeks aripiprazole [Abilify] 5 mg tablet 5 mg PO DAILY Patient Comments: Pt states he hasn't taken medication in over 3 weeks clonidine HCl 0.1 mg tablet 0.1 mg PO TID PRN Patient Comments: Pt states he hasn't taken medication in over 3 weeks Rx Instructions: Dione Bojorquez Np/HAN bupropion HCl [Wellbutrin XL] 150 mg tablet extended release 24 hr 150 mg PO QAM Patient Comments: Pt states he hasn't taken medication in over 3 weeks Rx Instructions: tale qam w/300mg for a total of 450mg qam. Dione Bojorquez NP/HAN bupropion HCl [Wellbutrin XL] 300 mg tablet extended release 24 hr 300 mg PO QAM Patient Comments: Pt states he hasn't taken medication in over 3 weeks Rx Instructions: take qam w/150mg for a total of 450 mg Dione Bojorquez NP/HAN Discharge Instructions Instructions: Alcohol Intoxication (ED) Additional Instructions: follow up with your primary care provider within 1-2 weeks if you feel more ill, have difficulty breathing or severe abdominal pain return to the emergency department If you want to pursue help with alcohol addiction you can reach out to the [address] [id number] M-F 8am-2pm Medical Decision Making 37 yo male with hx of alcohol abuse comes in with alcohol intoxication. He apparently was trying to get into a car and was intoxicated, so PD was called and then was brought here by EMS. He arrives mildly tachycardic in sinus on the monitor, has no acute complaitns otherwise. He states he has been drinking hard alcohol all day. He is caox4 with clear speech on arrival, does smell of alcohol. Denies headache, chest pain, dyspnea. Denies other substance use other then marijuana. Denies si/hi. Suspect this is all alcohol intoxication related, will send cbc, cmp, etoh level and reassess. etoh over 300 otherwise no significant abnormalities on labs, pt stable, still no si/hi, his mother is willing to come pick him up, advised to f/u with his pcp and return precautions given Differential Diagnosis Differential Diagnosis: alcohol abuse, intoxication HPI General Mode of arrival: ambulatory. Date/Time Provider Initiated Documentation: 03/15/23 15:27. Limitations to Documentation: no limitations. Information obtained by: patient. History of Present Illness 37 year old M presents to the emergency department with the chief complaint of alcohol intoxication, Patient started experiencing this day(s) (1) and it has been constant. No relieving factors improve symptom(s), No exacerbating factors reported . Patient notes no other symptoms.. Patient did receive the following treatments prior to arrival, none Related Data Home Medications Medication Instructions Recorded Confirmed hydroxyzine HCl 25 mg tablet 50 mg PO QHS PRN sleep #180 tabs 02/25/21 12/15/21 sertraline 100 mg tablet 100 mg PO DAILY 04/09/21 12/15/21 melatonin 3 mg tablet 9 mg PO HS PRN sleep #90 tabs 05/01/21 12/15/21 clonidine 0.1 mg/24 hr weekly 1 patch transdermal QWEEK #4 ea 05/12/21 12/15/21 transdermal patch risperidone 4 mg tablet (Risperdal) 4 mg PO BID #60 tabs 06/03/21 12/15/21 aripiprazole 5 mg tablet (Abilify) 5 mg PO DAILY 07/01/21 12/15/21 bupropion HCl 150 mg 24 hr tablet, 150 mg PO QAM 08/04/21 12/15/21 extended release (Wellbutrin XL) bupropion HCl 300 mg 24 hr tablet, 300 mg PO QAM 08/04/21 12/15/21 extended release (Wellbutrin XL) clonidine HCl 0.1 mg tablet 0.1 mg PO TID PRN 08/04/21 12/15/21 Previous Rx's Medication Instructions Recorded hydroxyzine HCl 25 mg tablet 50 mg PO QHS PRN sleep #180 tabs 02/25/21 melatonin 3 mg tablet 9 mg PO HS PRN sleep #90 tabs 05/01/21 clonidine 0.1 mg/24 hr weekly 1 patch transdermal QWEEK #4 ea 05/12/21 transdermal patch risperidone 4 mg tablet (Risperdal) 4 mg PO BID #60 tabs 06/03/21 Allergies Allergy/AdvReac Type Severity Reaction Status Date / Time No Known Allergies Allergy Verified 03/15/23 16:21 General Stated Complaint: ETOHWithdr MARIJA: 3 Review of Systems All systems reviewed & are unremarkable except as noted in HPI and below Constitutional Constitutional: Denies chills, Denies fever(s) and Denies weakness Cardiovascular Cardiovascular: Denies chest pain and Denies dyspnea Respiratory Respiratory: Denies cough and Denies dyspnea Gastrointestinal Gastrointestinal: Denies abdominal pain, Denies nausea and Denies vomiting Integumentary/Breasts Skin/Breast: Denies rash Neurologic Neurologic: Denies weakness Psychiatric Psychiatric: Denies depression PFSH All Active Problems (Updated 03/15/23 @ 16:44 by Richard Moreno MD) Alcohol intoxication (Acute) Schizophrenia (Chronic) Nicotine dependence, other tobacco product, in remission (Chronic) Depression (Chronic) Anxiety (Chronic) Alcohol dependence in early full remission (Chronic) 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) Homicidal ideation (Acute) [facility] discharge 04/03/21 Threatening to others (Acute) Medical History (Updated 03/15/23 @ 16:44 by Richard Moreno MD) Lab test positive for detection of COVID-19 virus (~05/2021) Social History (Updated 02/25/21 @ 12:40 by Rosi Beck LPN) Smoking/Tobacco Use Status: Former Tobacco Use tobacco type: cigarettes Quit status: quit date established (quit 12/07/20) Smoking risk assessment performed?: Yes Alcohol Intake: current Alcohol Intake frequency: 3 or more drinks per day Alcohol type: beer, wine and hard liquor Previous attempts at quittin Counseling given: Yes (talking with a counselor) Drug use: Daily Substance use type: former substance user and marijuana Adopted: No Caregiver/Support person: No Foster care: No Household members: other Details: sober housing Housing: apartment Number of Children: 0 Communication Needs: None Education Level: high school Do you need help understanding health information?: Rarely 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 [employer] Pets and animals: No Sexually active: No Do you think of yourself as: straight/heterosexual Current gender identity: male What is your relationship status?: never How often do you talk on the phone with friends or family?: decline to answer How often do you get together with friends or relatives?: decline to answer Panel score (0-1 are the most socially isolated patients): 0 Janna/Scientology: Taoism Special janna needs: No Seatbelt use: always Helmet use: Yes Helmet use: never Drive intox or ride w/intox belly dump driver: No Working smoke detector in home: Yes Fire extinguisher in home: Yes Carbon monox detector in home: Yes Do you feel safe at home: Yes Do you feel safe in your relationship?: Yes Exam Const General: no acute distress Orientation: alert [facility] Head: normal to inspection Ears: external ears normal General nose exam: external nose normal Mouth: moist mucous membranes Eyes General: appearance normal, both eyes and all related structures Neck Neck: normal visual inspection Resp Effort & Inspection: normal respiratory effort and able to speak in complete sentences Cardio Rate: regular rate GI Palpation: soft and nontender Skin General skin exam: no rashes or lesions noted Neuro General: patient alert and patient oriented x3 Extrem General: normal to inspection Psych Mental Status: mental status grossly normal Course Vital Signs Vital signs: Vital Signs Temperature 37.0 C 03/15/23 15:21 Pulse 120 H 03/15/23 15:21 Respiratory Rate 18 03/15/23 15:21 Blood Pressure 153/98 H 03/15/23 15:21 Pulse Oximetry 96 03/15/23 15:21 Temperature 37.0 C 03/15/23 15:21 Pulse 120 H 03/15/23 15:21 Respiratory Rate 18 03/15/23 15:21 Respiratory Effort Normal, Non-Labored 03/15/23 15:26 Blood Pressure 153/98 H 03/15/23 15:21 Blood Pressure Position Supine 03/15/23 15:21 Pulse Oximetry 96 03/15/23 15:21 Oxygen Delivery Method Room Air 03/15/23 15:21 Oxygen Flow Rate 0 03/15/23 15:21 Pain Level 0 03/15/23 15:21 PAWSS Have you Been Recently Intoxicated or Drunk Within the Last 30 days?: Yes Have you Ever Experienced Previous Episodes of Alcohol Withdrawal?: Yes Have you ever Experienced Withdrawal Seizures?: No Have you ever Experienced Delirium Tremens(DT)s?: Yes Have you ever undergone Alcohol Rehabilitation Treatment (i.e, inpt ot outpatient treatment programs)?: Yes Have you ever Experienced Blackouts?: Yes Have you ever Combined Alcohol with other Downers within the last 90 days?: Yes Have you ever Combined Alcohol with any other Substance of Abuse during the last 90 days?: Yes Positive Blood Alcohol level on Presentation? [PCS.BAL]: Unable to Obtain Evidence of Increased Autonomic Activity (i.e. HR>120, tremor, sweating, agitation, nausea)?: No Result: 7
[2023-03-15 15:45] LABS: Absolute Lymphocyte Count 2.86 10^3/uL (1.2-3.4); Absolute Neutrophil Count 3.15 10^3/uL (1.2-6.7); Basophils % 1.2; Eosinophils % 2.5; HCT 47.8 % (40.0-50.0); HGB 16.6 g/dL (13.5-17.5); Immature Grans % 0.7; Lymphocytes % 41.4; MCH 29.9 pg (27.0-33.0); MCHC 34.7 % (32.0-36.0); MCV 86 fL (80-95); MPV 9.5 fL (8.0-11.0); Monocytes % 8.6; Neutrophils % 45.6; Platelet Count 326 10^3/uL (130-400); RBC 5.56 10^6/uL (4.36-5.78); RDW 13.7 % (11.8-14.1); RDW-SD 41.1 fL
[2023-03-15] MEDS: Normal Saline 1,000 ML 1000 ML IV (15:45)
[2023-03-15 15:46] LABS: Abs Immature Grans 0.05 10^3/uL (0.0-0.06); Absolute Basophil Count 0.08 10^3/uL (0.0-0.2); Absolute Eosinophil Count 0.17 10^3/uL (0.0-0.7); Absolute Monocyte Count 0.59 10^3/uL (0.1-0.8)
[2023-03-15 16:03] LABS: ALT 92 U/L (16-63); AST 58 U/L (15-37); Albumin 3.7 g/dL (3.4-5.0); Alkaline Phosphatase 130 U/L (46-116); Anion Gap 14.4 mmol/L (3-11); BUN 8 mg/dL (7-18); Bilirubin, Total 0.3 mg/dL (0.2-1.0); CO2 22.6 mmol/L (21.0-32.0); CREATININE 0.8 mg/dL (0.70-1.30); Calcium 8.4 mg/dL (8.5-10.1); Chloride 104 mmol/L (98-107); Estimated GFR 118.36 (mL/min/1.73m2); Glucose 120 mg/dL (74-106); Magnesium 2.1 mg/dL (1.8-2.4); Potassium 3.5 mmol/L (3.5-5.1); Sodium 141 mmol/L (136-145); Total Protein 7.7 g/dL (6.4-8.2)
[2023-03-15 16:04] LABS: ETHANOL BLOOD 349.4 mg/dL (<10)
[2023-03-15 17:52] VITALS: BP 136/99; PULSE 100; RESP 18; O2SAT 94
== END 2023-03-15 17:58 | disposition home or self-care (01) ==
PROVIDERS: Emergency Provider Emergency Medicine
DX: F10.129 Alcohol abuse with intoxication, unspecified (principal); Y90.8 Blood alcohol level of 240 mg/100 ml or more; Z87.891 Personal history of nicotine dependence
CPT/HCPCS: 36415; 80053; 96360; 96361; 99284; 80320; 83735; 85025; 99283

== ENCOUNTER 2023-03-21 17:55 | Inpatient (IN) | payer MEDICAID, SELFPAY ==
[2023-03-21] VITALS (39 sets, daily range): BP systolic 85–156; BP diastolic 67–120; PULSE 120–154; RESP 14–34; TEMP 36.5–36.8; O2SAT 86–97
--- NOTE | 2023-03-21 | DI.RAD_ITS ---
Exam(s) XR ABDOMEN FLAT PLATE EXAM: XR ABDOMEN FLAT PLATE CLINICAL HISTORY: abdominal pain. TECHNIQUE: 2D digital imaging was performed. COMPARISON: No exams were available for comparison FINDINGS: AP supine view the abdomen. The bowel gas pattern is nonspecific in the supine position. No abnormal calcifications seen. No pn eumatosis. Regional bones unremarkable. IMPRESSION: Nonspecific bowel gas pattern in the supine position. DATA REPOSITORY: RADIATION DOSE DELIVERED:
--- NOTE | 2023-03-21 | DI.RAD_ITS ---
Exam(s) XR PORTABLE CHEST AP EXAM: XR PORTABLE CHEST AP CLINICAL HISTORY: vomiting, leucocytosis, ? aspiration. TECHNIQUE: 2D digital imaging was performed. COMPARISON: No exams were available for comparison FINDINGS: Single AP portable view. Heart size is upper normal. The mediastinum is not widened. Lungs are clear. No infiltrates nor obvious pleural effusions. IMPRESSION: No acute pulmonary findings on this single AP portable view of the chest. DATA REPOSITORY: RADIATION DOSE DELIVERED:
--- NOTE | 2023-03-21 18:21 | ED.GENADUL_ITS ---
Discharge Plan Disposition Patient Disposition: Admit to [facility] Discharge Details Clinical Impression: Hematemesis, Alcohol intoxication Admit Date/Time: 03/21/23 20:10 Admit Provider: Azra Hurt Attending Provider: Azra Hurt Primary Care Provider: Unknown,Unknown ED Provider: Dmitry Rodriguez Discharge Data Discharge Date/Time-TO BE ENTERED AT DEPARTURE: 03/21/23 21:29 Medical Decision Making Patient presenting to the emergency department with mother for chief complaint of alcohol intoxication and request of detox. Patient is clearly intoxicated with slurred speech, labile mood and does appear somewhat anxious about being here. Mother states that patient has history of alcoholism and had been sober for 2 years but due to recent family that patient has been drinking daily for the past month. She went to speak to patient today to discuss detox and patient was significantly intoxicated at that time. Mother is bringing patient in for medical detox due to patient having a history of seizures with previous episodes of detox. Patient states significant amount of alcohol intake today with last drink just prior to arrival. Does state some vomiting and there was question of possible bloody emesis but patient just stated it was red in color. Physical exam shows significant tachycardia, presentation significant with intoxication, soft nontender abdomen otherwise nonspecific exam. We will plan on checking patient's labs and starting IV hydration due to tachycardia with heart rate in the 150s. Of note mother does state that the patient has made statements in regards to hopelessness and that he wishes everything was over denies any specific suicidal or homicidal plans mentioned. Patient does have history of schizophrenia and mother states that since he has been drinking he has been off all of his psychiatric meds. Informed her that we would need to medically clear patient first prior to psychiatric evaluation which I do feel would be beneficial. There is some concern for potential GI bleed given patient's excessive alcoholism and reported some red in emesis. Do not feel the patient needs CT imaging at this time but will test emesis for blood if patient does vomit Reviewed patient's labs and CBC shows elevated WBCs along with RBCs hemoglobin hematocrit which I feel may be due to hemoconcentration from dehydration. CMP reviewed and shows slightly decreased potassium at 3.0, anion gap of 18.5, glucose of 131, phosphorus of less than 2, bilirubin within normal range along with magnesium AST ALT and alk phos all elevated. Alcohol level is 450. senior staff accountant did state that patient was starting to feel nauseous again so Zofran was ordered and patient was noted to have slight agitation which I do not feel is withdrawal symptoms at this point but just more intoxication so 1 mg of Ativan was given. Due to consideration of upper GI bleed with acute intoxication and history of withdrawal seizures and potential need for psychiatric evaluation once sober did contact hospitalist for admission. Spoke with Dr. Hurt who agreed to admit patient. She did request beginning Pepcid which I feel is reasonable. While patient is intoxicated I did ask him if he was agreeable to staying the night which he said that he was. Lab Data Lab results reviewed: Yes I reviewed the patient's lab results. HPI General Mode of arrival: ambulatory . Date/Time Provider Initiated Documentation: 03/21/23 17:56 . Limitations to Documentation: no limitations . Information obtained by: patient, family and RN notes reviewed . History of Pre sent Illness 37 year old M presents to the emergency department with the chief complaint of Alcohol detox, described as moderate, severe and similar to prior episodes, Patient started experiencing this month(s) (1) and it has been constant. No relieving factors improve symptom(s), Other factors that worsen symptoms (Recent family stressors) . Patient notes nausea/vomiting. Patient did receive the following treatments prior to arrival, none Related Data Home Medications Medication Instructions Recorded Confirmed hydroxyzine HCl 25 mg tablet 50 mg PO QHS PRN sleep #180 tabs 02/25/21 03/21/23 sertraline 100 mg tablet 100 mg PO DAILY 04/09/21 03/21/23 melatonin 3 mg tablet 9 mg PO HS PRN sleep #90 tabs 05/01/21 03/21/23 clonidine 0.1 mg/24 hr weekly 1 patch transdermal QWEEK #4 ea 05/12/21 03/21/23 transdermal patch risperidone 4 mg tablet (Risperdal) 4 mg PO BID #60 tabs 06/03/21 03/21/23 aripiprazole 5 mg tablet (Abilify) 5 mg PO DAILY 07/01/21 03/21/23 bupropion HCl 150 mg 24 hr tablet, 150 mg PO QAM 08/04/21 03/21/23 extended release (Wellbutrin XL) bupropion HCl 300 mg 24 hr tablet, 300 mg PO QAM 08/04/21 03/21/23 extended release (Wellbutrin XL) clonidine HCl 0.1 mg tablet 0.1 mg PO TID PRN 08/04/21 03/21/23 Previous Rx's Medication Instructions Recorded hydroxyzine HCl 25 mg tablet 50 mg PO QHS PRN sleep #180 tabs 02/25/21 melatonin 3 mg tablet 9 mg PO HS PRN sleep #90 tabs 05/01/21 clonidine 0.1 mg/24 hr weekly 1 patch transdermal QWEEK #4 ea 05/12/21 transdermal patch risperidone 4 mg tablet (Risperdal) 4 mg PO BID #60 tabs 06/03/21 Allergies Allergy/AdvReac Type Severity Reaction Status Date / Time No Known Allergies Allergy Verified 03/21/23 18:15 General Stated Complaint: ETOHWithdr MARIJA: 3 Review of Systems Unobtainable due to mental condition Gastrointestinal Gastrointestinal: Reports vomiting and Reports hematemesis Neurologic Neurologic: Reports behavioral changes Psychiatric Psychiatric: Reports as per HPI, Reports behavioral changes, Reports depression, Reports hopelessness and Reports irritability PFSH All Active Problems (Updated 03/21/23 @ 22:31 by Azra Hurt MD) Alcohol withdrawal (Acute) Transaminitis (Acute) Metabolic acidosis, increased anion gap (Acute) Hypophosphatemia (Acute) Discharge planning issues (Acute) DVT prophylaxis (Acute) Alcohol intoxication (Acute) Hematemesis (Acute) Schizophrenia (Chronic) Nicotine dependence, other tobacco product, in remission (Chronic) Depression (Chronic) Anxiety (Chronic) Alcohol dependence in early full remission (Chronic) 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) Hypokalemia (Acute) Homicidal ideation (Acute) [facility] discharge 04/03/21 Threatening to others (Acute) Medical History (Updated 03/21/23 @ 22:31 by Azra Hurt MD) Alcohol withdrawal seizure Lab test positive for detection of COVID-19 virus (~05/2021) Surgical History (Updated 03/21/23 @ 22:15 by Azra Hurt MD) H/O bilateral inguinal hernia repair Family History (Updated 03/21/23 @ 22:17 by Azra Hurt MD) Paternal Grandmother Heart disease Paternal Grandfather Cancer leukemia Maternal Grandfather Cancer prostate cancern Hypertension Father Diabetes Alcohol use disorder Social History (Updated 03/21/23 @ 22:18 by Azra Hurt MD) Smoking/Tobacco Use Status: Former Tobacco Use tobacco type: cigarettes Quit status: quit date established (quit 12/07/20) Smoking risk assessment performed?: Yes Alcohol Intake: current Alcohol Intake frequency: 3 or more drinks per day Alcohol type: beer, wine and hard liquor Previous attempts at quittin Counseling given: Yes (talking with a counselor) Drug use: Occasionally Substance use type: former substance user and marijuana Details: vapes THC Adopted: No Caregiver/Support person: No Foster care: No Household members: other Details: sober housing Housing: apartment Number of Children: 0 Communication Needs: None Education Level: high school Do you need help understanding health information?: Rarely 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 [employer] Pets and animals: No Sexually active: No Do you think of yourself as: straight/heterosexual Current gender identity: male What is your relationship status?: never How often do you talk on the phone with friends or family?: decline to answer How often do you get together with friends or relatives?: decline to answer Panel score (0-1 are the most socially isolated patients): 0 Janna/Hoahaoism: Episcopal Special janna needs: No Seatbelt use: always Helmet use: Yes Helmet use: never Drive intox or ride w/intox piledriver carpenter: No Working smoke detector in home: Yes Fire extinguisher in home: Yes Carbon monox detector in home: Yes Do you feel safe at home: Yes Do you feel safe in your relationship?: Yes Exam Const General: cooperative, anxious and intoxicated appearing Nutritional Appearance: average body habitus Orientation: alert, awake, oriented to person and oriented to place [facility] Head: normocephalic and atraumatic Resp Effort & Inspection: normal respiratory effort and able to speak in complete sentences Auscultation: clear to auscultation bilaterally Cardio Rate: tachycardic Rhythm: regular rhythm Heart Sounds: S1 normal and S2 normal GI Palpation: soft, not firm, no guarding, no masses, no pulsatile masses, not rigid and nontender Auscultation: normal bowel sounds Neuro General: patient alert, patient awake, patient oriented x3, gait normal and moves all extremities Psych Appearance: disheveled Speech and Movement: slurred speech Mood: anxious mood and labile mood Affect: animated and anxious affect Attitude: cooperative and avoids eye contact Course Vital Signs Vital signs: Vital Signs Temperature 36.8 C 03/21/23 17:58 Pulse 154 H 03/21/23 17:58 Respiratory Rate 14 03/21/23 17:58 Blood Pressure 156/120 H 03/21/23 17:58 Pulse Oximetry 96 03/21/23 17:58 Temperature 36.8 C 03/21/23 17:58 Pulse 154 H 03/21/23 17:58 Respiratory Rate 14 03/21/23 17:58 Respiratory Effort Normal 03/21/23 18:07 Blood Pressure 156/120 H 03/21/23 17:58 Blood Pressure Position Sitting 03/21/23 17:58 Pulse Oximetry 96 03/21/23 17:58 Oxygen Delivery Method Room Air 03/21/23 17:58 Oxygen Flow Rate 0 03/21/23 17:58 PAWSS Have you Been Recently Intoxicated or Drunk Within the Last 30 days?: Yes Have you Ever Experienced Previous Episodes of Alcohol Withdrawal?: Yes Have you ever Experienced Withdrawal Seizures?: Yes Have you ever Experienced Delirium Tremens(DT)s?: Yes Have you ever undergone Alcohol Rehabilitation Treatment (i.e, inpt ot outpatient treatment programs)?: Yes Have you ever Experienced Blackouts?: Yes Have you ever Combined Alcohol with other Downers within the last 90 days?: Yes Have you ever Combined Alcohol with any other Substance of Abuse during the last 90 days?: Yes Result: 8
[2023-03-21] MEDS: Normal Saline 1,000 ML 1000 ML IV (18:22)
[2023-03-21 18:30] LABS: Abs Immature Grans 0.06 10^3/uL (0.0-0.06); Absolute Basophil Count 0.09 10^3/uL (0.0-0.2); Absolute Eosinophil Count 0.04 10^3/uL (0.0-0.7); Absolute Lymphocyte Count 3.17 10^3/uL (1.2-3.4); Absolute Monocyte Count 1.23 10^3/uL (0.1-0.8); Absolute Neutrophil Count 8.23 10^3/uL (1.2-6.7); Basophils % 0.7; Eosinophils % 0.3; HCT 51.6 % (40.0-50.0); HGB 17.9 g/dL (13.5-17.5); Immature Grans % 0.5; Lymphocytes % 24.7; MCH 29.6 pg (27.0-33.0); MCHC 34.7 % (32.0-36.0); MCV 85 fL (80-95); MPV 8.9 fL (8.0-11.0); Monocytes % 9.6; Neutrophils % 64.2; Platelet Count 407 10^3/uL (130-400); RBC 6.05 10^6/uL (4.36-5.78); RDW 14.5 % (11.8-14.1); RDW-SD 43.5 fL; WBC 12.82 10^3/uL (4.4-10.8)
[2023-03-21 18:45] LABS: PHOSPHORUS < 2.0 mg/dL (2.6-4.7)
[2023-03-21 18:48] LABS: ALT 100 U/L (16-63); AST 70 U/L (15-37); Albumin 4.1 g/dL (3.4-5.0); Alkaline Phosphatase 145 U/L (46-116); Anion Gap 18.5 mmol/L (3-11); BUN 10 mg/dL (7-18); Bilirubin, Total 0.7 mg/dL (0.2-1.0); CO2 21.5 mmol/L (21.0-32.0); CREATININE 1.1 mg/dL (0.70-1.30); Calcium 9.3 mg/dL (8.5-10.1); Chloride 99 mmol/L (98-107); Estimated GFR 89.78 (mL/min/1.73m2); Glucose 131 mg/dL (74-106); Magnesium 1.9 mg/dL (1.8-2.4); Sodium 139 mmol/L (136-145); Total Protein 8.1 g/dL (6.4-8.2)
[2023-03-21] MEDS: Folic Acid 50 MG/10 ML VIAL (18:48)
[2023-03-21] MEDS: MULTIVITAMIN 10 ML, THIAMINE 100 MG, FOLIC ACID 1 MG in DEXTROSE 5%-0.45% SALINE 1,000 ML 42 ML IV (18:49)
[2023-03-21] MEDS: Thiamine 200 MG/2 ML VIAL (18:50)
[2023-03-21] MEDS: LORazepam 2 MG/ML VIAL 1 MG IVP (18:58)
[2023-03-21 19:08] LABS: ETHANOL BLOOD 450.2 mg/dL (<10)
[2023-03-21] MEDS: Ondansetron 4 MG/2 ML VIAL (19:20)
--- NOTE | 2023-03-21 20:01 | NUR.NOTE ---
PT started on 2L NC due to SPO2% per ED NPNursing Note:
[2023-03-21] MEDS: Pantoprazole 40 MG VIAL IVP (21:02)
[2023-03-21] MEDS: POTASSIUM CHLORIDE 20 MEQ/100 ML BAG 50 MEQ IVPB (21:14)
--- NOTE | 2023-03-21 21:37 | W.PM.HP.N ---
Date of service: 03/21/23 Time of Service: 21:37 Assessment and Plan Assessment and plan (1) Hematemesis: Status: Acute Assessment and plan: I suspect alcoholic gastritis; cannot rule out an ulcer/other upper GI lesion. NPO, treat with IV protonix BID + carafate. Trend H/H. Check hemoccult. Antiemetics. May require a surgical consult. Will obtain CXR to ensure the patient had not aspirated from vomiting. Will obtain XR abdomen to ensure no obstructive process, though clinically the patient's abdomen is very benign. (2) Alcohol withdrawal: Status: Acute Assessment and plan: W/ h/o EtOH w/d seizures. CIWA score is at leat 15, per my calculation. Will start phenobarbital protocol. Supplement thiamine, MVI. Check B12/folate levels. (3) Alcohol intoxication: Status: Acute Assessment and plan: As above (4) Schizophrenia: Status: Chronic Assessment and plan: The patient had stopped taking his medications about a month ago. Once he is medically cleared, we will have mental health evaluate him. Qualifiers: Schizophrenia type: unspecified Qualified Code(s): F20.9 - Schizophrenia, unspecified (5) Depression: Status: Chronic Assessment and plan: As above Qualifiers: Depression Type: major depressive disorder Major depression recurrence: recurrent Active/Remission status: currently active Major depression episode severity: moderate Qualified Code(s): F33.1 - Major depressive disorder, recurrent, moderate (6) Anxiety: Status: Chronic Assessment and plan: A component of this today is certainly his EtOH w/d. We will treat the withdawal. Outpatient psychiatric medications will need to be restarted with [facility]'s guidance. (7) Hypokalemia: Status: Acute Assessment and plan: Replete, recheck in am (8) Hypophosphatemia: Status: Acute Assessment and plan: Monitor, replete, recheck in am. (9) Metabolic acidosis, increased anion gap: Status: Acute Assessment and plan: Suspect this is starvation and alcoholic ketoacidosis. Obtain UA for ketones. IV hydration. (10) Transaminitis: Status: Acute Assessment and plan: In setting of EtOH abuse, but we will also obtain a hepatitis panel. Obtain US abdomen. (11) DVT prophylaxis: Status: Acute Assessment and plan: Not indicated in a 37 year old male. However, if his withdrawal is prolonged and he is nonambulatory, he would benefit from DVT prophylaxis. (12) Discharge planning issues: Status: Acute Assessment and plan: Full code Admit to the ICU. Total Critical Care Time 60 minutes. History of Present Illness History of Present Illness Chief Complaint: vomiting red contents, alcohol intoxication and withdrawal, depression Narrative: Mr Carroll is a 37 year old male with PMHx of schizophrenia, alcohol abuse with h/o alcohol withdrawal seizures, anxiety, and depression, who had presented to [facility] ED after vomiting red contents today. The patient had been sober for two years, but then after a of a family member, had stopped taking all of his psychiatric medications and started drinking again, and this has been going on for the last month. He had texted his mother this morning that he had vomited red blood. His mother found him intoxicated and brought him in for detox due to the patient's history of alcohol withdrawal seizures. Per ED provider, the patient was anxious, but not visibly withdrawing in the ER. He did receive 1 mg of lorazepam in the ER for anxiety. His mother was also hoping for a mental health evaluation and was advised that the patient would need to be medically cleared first. Per the ER provider, the patient had beem making depressive statements but had not been suicidal or homicidal. The patient agreed to stay in the hospital to the ED provider. He received a dose of protonix in the ED, was hydrated intravenously, and given a dose of IV thiamine and a banana bag. His potassium of 3.2 was repleted IV. Hospitalist admission was requested. The patient is being admitted to the ICU due to his hx of alcohol withdrawal seizures. Of note, the patient reports being nauseated and is dry heaving in the ICU. His mother states he has been coughing today. The patient reports lower abdominal discomfort. He is answering only some of my questions. His CIWA score is at least 15 (he is not clear if he is hallucinating). He drinks about a half of a bottle of hard liquer per day. His last drink was right before coming to the hospital. 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) Hypokalemia (Acute) Homicidal ideation (Acute) [place] discharge 04/03/21 Threatening to others (Acute) Medical History (Updated 03/21/23 @ 22:31 by Azra Hurt MD) Alcohol withdrawal seizure Lab test positive for detection of COVID-19 virus (~05/2021) Surgical History (Updated 03/21/23 @ 22:15 by Azra Hurt MD) H/O bilateral inguinal hernia repair Family History (Updated 03/21/23 @ 22:17 by Azra Hurt MD) Paternal Grandmother Heart disease Paternal Grandfather Cancer leukemia Maternal Grandfather Cancer prostate cancern Hypertension Father Diabetes Alcohol use disorder Social History (Updated 03/21/23 @ 22:18 by Azra Hurt MD) Smoking/Tobacco Use Status: Former Tobacco Use tobacco type: cigarettes Quit status: quit date established (quit 12/07/20) Smoking risk assessment performed?: Yes Alcohol Intake: current Alcohol Intake frequency: 3 or more drinks per day Alcohol type: beer, wine and hard liquor Previous attempts at quittin Counseling given: Yes (talking with a counselor) Drug use: Occasionally Substance use type: former substance user and marijuana Details: vapes THC Adopted: No Caregiver/Support person: No Foster care: No Household members: other Details: sober housing Housing: apartment Number of Children: 0 Communication Needs: None Education Level: high school Do you need help understanding health information?: Rarely 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 [employer] Pets and animals: No Sexually active: No Do you think of yourself as: straight/heterosexual Current gender identity: male What is your relationship status?: never How often do you talk on the phone with friends or family?: decline to answer How often do you get together with friends or relatives?: decline to answer Panel score (0-1 are the most socially isolated patients): 0 Janna/Judaism: Mu-Ism Special janna needs: No Seatbelt use: always Helmet use: Yes Helmet use: never Drive intox or ride w/intox route delivery driver: No Working smoke detector in home: Yes Fire extinguisher in home: Yes Carbon monox detector in home: Yes Do you feel safe at home: Yes Do you feel safe in your relationship?: Yes Meds Allergies and Home Medications Allergies Allergy/AdvReac Type Severity Reaction Status Date / Time No Known Allergies Allergy Verified 03/21/23 18:15 Home Medications Medication Instructions Recorded Confirmed Type hydroxyzine HCl 25 mg tablet 50 mg PO QHS PRN sleep #180 tabs 02/25/21 12/15/21 Rx sertraline 100 mg tablet 100 mg PO DAILY 04/09/21 12/15/21 History melatonin 3 mg tablet 9 mg PO HS PRN sleep #90 tabs 05/01/21 12/15/21 Rx clonidine 0.1 mg/24 hr weekly 1 patch transdermal QWEEK #4 ea 05/12/21 12/15/21 Rx transdermal patch risperidone 4 mg tablet (Risperdal) 4 mg PO BID #60 tabs 06/03/21 12/15/21 Rx aripiprazole 5 mg tablet (Abilify) 5 mg PO DAILY 07/01/21 12/15/21 History bupropion HCl 150 mg 24 hr tablet, 150 mg PO QAM 08/04/21 12/15/21 History extended release (Wellbutrin XL) bupropion HCl 300 mg 24 hr tablet, 300 mg PO QAM 08/04/21 12/15/21 History extended release (Wellbutrin XL) clonidine HCl 0.1 mg tablet 0.1 mg PO TID PRN 08/04/21 12/15/21 History Exam Narrative Exam Narrative: General: Diaphoretic male, not tremulous, who is distracted, restless, answers very few of my questions, repeats For ____'s sake! Neurological: Somnolent, distracted, no obvious focal deficits Psychiatric: Difficult to fully assess given mental status Skin: Diaphoretic, visible skin intact HEENT: Atraumatic, normocephalic< EOMI, dry MM, the patient does not permit a full oropharyngeal exam, no submandibular or cervical lymphadenopathy, no goiter or JVD Cardiovascular: RRR, tachycardic, no m/r/g Lungs: Dimished breath sounds B Gastrointestinal: soft, ?tender suprapubically, nondistended Genitourinary: deferred Extremities: No e/c/c, 2+ pedal pulses B Results Imaging Additional studies: CXR, XR abdomen, EKG ordered, pending Labs 03/21/23 18:15 03/21/23 18:15 Labs: Laboratory Results - last 24 hr 03/21/23 03/21/23 03/21/23 18:15 18:15 18:15 WBC 12.82 H RBC 6.05 H Hgb 17.9 H Hct 51.6 H MCV 85 MCH 29.6 MCHC 34.7 RDW 14.5 H Plt Count 407 H MPV 8.9 Immature Gran % 0.5 Neutrophils % 64.2 Lymphocytes % 24.7 Monocytes % 9.6 Eosinophils % 0.3 Basophils % 0.7 Nucleated RBC % 0.0 Absolute Neutrophils 8.23 H Absolute Lymphocytes 3.17 Absolute Monocytes 1.23 H Absolute Eosinophils 0.04 Absolute Basophils 0.09 Sodium 139 Potassium 3.0 L Chloride 99 Carbon Dioxide 21.5 Anion Gap 18.5 H BUN 10 Creatinine 1.1 Est GFR (CKD-EPI 2020) 89.78 Glucose 131 H Calcium 9.3 Phosphorus < 2.0 L Magnesium 1.9 Total Bilirubin 0.7 AST 70 H ALT 100 H Alkaline Phosphatase 145 H Total Protein 8.1 Albumin 4.1 Ethyl Alcohol 450.2 H Last Vital Signs Temp 36.8 C 03/21/23 17:58 Pulse 120 H 03/21/23 21:16 Resp 27 H 03/21/23 21:16 BP 144/72 H 03/21/23 21:16 Pulse Ox 92 03/21/23 21:16 PAWSS Have you Been Recently Intoxicated or Drunk Within the Last 30 days?: Yes Have you Ever Experienced Previous Episodes of Alcohol Withdrawal?: Yes Have you ever Experienced Withdrawal Seizures?: Yes Have you ever Experienced Delirium Tremens(DT)s?: Yes Have you ever undergone Alcohol Rehabilitation Treatment (i.e, inpt ot outpatient treatment programs)?: Yes Have you ever Experienced Blackouts?: Yes Have you ever Combined Alcohol with other Downers within the last 90 days?: Yes Have you ever Combined Alcohol with any other Substance of Abuse during the last 90 days?: Yes Result: 8 Time Spent Time spent with Patient: 55-74 minutes Time was spent: preparing to see the patient(eg.review tests), obtaining and/or reviewing separately otained hiistory, ordering medications,tests, procedures, referring, communicating with other health career technical education teacher, indepentently interpreting results, counseling the patient and care coordination
[2023-03-21] MEDS: Normal Saline Flush 10 ML SYR IVP (22:07)
[2023-03-21] MEDS: PHENobarbital 130 MG/ML VIAL IVP (22:07)
[2023-03-21] MEDS: Sucralfate 1 GM TAB PO (22:07)
--- NOTE | 2023-03-21 22:15 | RT.EKG_ITS ---
APPROVED REPORT Exam: Resting ECG Reason for Exam: tachycardia Patient Location: I HR:131 bpm ECG Measurements Heart Rate 131 AXIS AR 145 P 34 QRSd 91 QRS 85 QT 289 T -7 QTc 427 Conclusion Sinus tachycardia...rate> 99 Probable left atrial enlargement...P >50mS, <-0.10mV V1 Poor R wave progression Vertical axis Nondiagnostic ST-T abnormalities with artifact
[2023-03-21 22:33] LABS: Lab Add On Test DONE
--- NOTE | 2023-03-21 22:33 | TELEP.MEDR_ITS ---
Date of service: 03/21/23 Time of Service: 22:33 Telepharmacy Home Med Rec Allergies Allergies: No Known Allergies Allergy (Verified 03/21/23 18:15) Interview Person Interviewed: * Mother (Mrs. Mata) Quality Quality of Interview/Accuracy of Medication List: Good Sources Sources used to compile medication list: [employer] Medication List, Patient List and [employer] Changes made to Home Medication List: ADDITIONS: * none DELETIONS: * none CHANGES: * none Additional Notes Additional Notes: * patient had not taken his medications for at least 3 weeks now, on his own. Recommended Changes Recommended Changes(reason for recommendation): * none Attestation: The home medication list is now updated to the best of my knowledge and is ready to be reconciled by the provider. Please contact the [facility] Medication Reconciliation Pharmacist at for any questions.
--- NOTE | 2023-03-21 22:33 | TELEP.MEDREC ---
Date of service: 03/21/23 Time of Service: 22:33 Telepharmacy Home Med Rec Allergies Allergies: No Known Allergies Allergy (Verified 03/21/23 18:15) Interview Person Interviewed: Mother (Mrs. Mata) Quality Quality of Interview/Accuracy of Medication List: Good Sources Sources used to compile medication list: [employer] Medication List, Patient List and [employer] Changes made to Home Medication List: ADDITIONS: none DELETIONS: none CHANGES: none Additional Notes Additional Notes: patient had not taken his medications for at least 3 weeks now, on his own. Recommended Changes Recommended Changes(reason for recommendation): none Attestation: The home medication list is now updated to the best of my knowledge and is ready to be reconciled by the provider. Please contact the [facility] Medication Reconciliation Pharmacist at for any questions.
[2023-03-21 23:14] LABS: Procalcitonin < 0.1 ng/mL
--- NOTE | 2023-03-21 23:33 | DI.VRAD_ITS ---
PROCEDURE INFORMATION: Exam: XR Abdomen Exam date and time: 03/21/2023 11:09 PM Age: 37 years old Clinical indication: Other: Abd pain TECHNIQUE: Imaging protocol: Radiologic exam of the abdomen. Views: Frontal supine view of the abdomen. 1 View. COMPARISON: CR XR PORTABLE CHEST AP 03/21/2023 11:06 PM FINDINGS: Lungs: The visualized portions of the lung bases are unremarkable. Gastrointestinal tract: There is a nonspecific bowel gas pattern. No evidence of bowel obstruction. Mild constipation. Clinical correlation recommended. Intraperitoneal space: There is no free intraperitoneal air. Organs: The organs are unremarkable. Bones/joints: The spine, sacroiliac joints, and hip joints show no evidence of fracture or other acute processes. Other findings: There are no soft tissue masses or calcifications. IMPRESSION: 1. No acute abdominal process identfied. 2. Possible constipation. Dictated and Authenticated by: Anthony Adames MD. Ordering:JENN Oquendo MD
--- NOTE | 2023-03-21 23:34 | DI.VRAD_ITS ---
PROCEDURE INFORMATION: Exam: XR Chest Exam date and time: 03/21/2023 11:06 PM Age: 37 years old Clinical indication: Other: Vomiting, leukocytosis, ? aspiration TECHNIQUE: Imaging protocol: Radiologic exam of the chest. Views: 1 view. COMPARISON: No relevant prior studies available. FINDINGS: Lungs: Mild atelectasis left lower lobe of the lung early aspiration pneumonia cannot be excluded. There is no evidence of focal pulmonary consolidation. The pulmonary vasculature is normal. Pleural spaces: There is no evidence of pneumothorax. There are no pleural effusions present. Heart/Mediastinum: The cardiac silhouette is within normal limits. The mediastinum is normal. Bones/joints: Convex dextroscoliosis of the thoracic spine present. The spine, sternum, ribs, and pectoral girdles show no evidence of acute abnormality Other findings: There are no soft tissue masses or calcifications. IMPRESSION: Mild atelectasis left lower lobe of the lung early aspiration pneumonia cannot be excluded. Dictated and Authenticated by: Anthony Adames MD. Ordering:JENN Oquendo MD
[2023-03-22] VITALS (39 sets, daily range): BP systolic 101–156; BP diastolic 55–112; PULSE 55–130; RESP 14–27; TEMP 36.7–37.4; O2SAT 91–99
--- NOTE | 2023-03-22 | DI.US_ITS ---
Exam(s) US ABDOMEN EXAM: US ABDOMEN CLINICAL HISTORY: Transaminitis, lower abdominal pain TECHNIQUE: Ultrasound of complete upper abdomen performed using standard protocol. COMPARISON: No exams were available for comparison FINDINGS: There is no ascites evident. LIVER: Liver is hyperechoic indicating steatosis. There are no focal hepatic lesions evident nor obv ious dilatation of intrahepatic ducts. GALLBLADDER/BILIARY: There are no gallstones. No gallbladder wall edema nor pericholecystic fluid. The common hepatic duct isnot dilated, measuring 3mm at the level of steph hepatis. PANCREAS: There is no evidence of pancreatic mass nor dilatation of the pancreatic duct. SPLEEN: The spleen is not enlarged and there are no intrasplenic lesions evident. KIDNEYS:Kidneys exhibit normal size with no evidence of solid mass, calculus, nor hydronephrosis. No cortical cysts evident. ABDOMINAL AORTA: There is no evidence of abdominal aortic aneurysm. IVC: Normal diameter where visualized. IMPRESSION: 1. No evidence of cholelithiasis nor dilatation of the biliary tree. 2. Hepatic steatosis noted. 3. No other ultrasound findings in the upper abdomen no evidence of ascites. DATA REPOSITORY:
[2023-03-22] MEDS: POTASSIUM CHLORIDE 20 MEQ/100 ML BAG 50 MEQ IVPB (00:06)
[2023-03-22] MEDS: Lactated Ringers 1,000 ML 150 ML IV (00:29)
[2023-03-22 00:52] LABS: Source Nasal/Nares
[2023-03-22 00:55] LABS: HCT 45.4 % (40.0-50.0); HGB 15.4 g/dL (13.5-17.5)
[2023-03-22 01:04] LABS: Bilirubin Negative (Negative); Blood Small (Negative); Clarity Clear (Clear); Glucose Negative (Negative); Ketones 15 mg/dL (Negative); Leukocyte Esterase Negative (Negative); Nitrite Negative (Negative); Specific Gravity 1.015 (1.005-1.025); Urobilinogen 0.2 mg/dL (Up to 0.2); pH 6.5 (5-8)
[2023-03-22 01:14] LABS: *AMPHETAMINES SCREEN URINE Negative (Negative); *BARBITURATES SCREEN URINE Negative (Negative); *BENZODIAZEPINES SCREEN URINE Negative (Negative); Cannabinoids THC Positive (Negative); Cocaine Screen,Urine Negative (Negative); METHADONE URINE SCREEN Negative (Negative); OPIATES URINE SCREEN Negative (Negative)
[2023-03-22 01:15] LABS: Tricyclic Antidepressants Negative (Negative)
[2023-03-22 01:16] LABS: Bacteria Few HPF (Negative); C & S Indicated? No; Casts Negative LPF (Negative); Crystals Negative HPF (Negative); Epithelial Cells Rare HPF (Negative); Mucus Trace (Negative); WBC 0-2 HPF (0-5)
[2023-03-22 01:24] LABS: COVID-19 PCR Negative (Negative)
[2023-03-22] MEDS: PHENobarbital 130 MG/ML VIAL IVP ×2 (04:32→11:28)
[2023-03-22] MEDS: Normal Saline 50 ML (04:53)
[2023-03-22 06:26] LABS: Abs Immature Grans 0.03 10^3/uL (0.0-0.06); Absolute Basophil Count 0.04 10^3/uL (0.0-0.2); Absolute Eosinophil Count 0.06 10^3/uL (0.0-0.7); Absolute Lymphocyte Count 2.82 10^3/uL (1.2-3.4); Absolute Neutrophil Count 3.44 10^3/uL (1.2-6.7); Basophils % 0.6; Eosinophils % 0.9; HCT 40.6 % (40.0-50.0); HGB 14.1 g/dL (13.5-17.5); Immature Grans % 0.4; Lymphocytes % 40.3; MCH 30.3 pg (27.0-33.0); MCHC 34.7 % (32.0-36.0); MCV 87 fL (80-95); MPV 9.3 fL (8.0-11.0); Monocytes % 8.6; Neutrophils % 49.2; Platelet Count 238 10^3/uL (130-400); RBC 4.65 10^6/uL (4.36-5.78); RDW 14.8 % (11.8-14.1); RDW-SD 46.5 fL; WBC 6.99 10^3/uL (4.4-10.8)
[2023-03-22 06:44] LABS: ALT 67 U/L (16-63); AST 45 U/L (15-37); Albumin 2.7 g/dL (3.4-5.0); Alkaline Phosphatase 100 U/L (46-116); Anion Gap 9.4 mmol/L (3-11); BUN 6 mg/dL (7-18); Bilirubin, Direct 0.2 mg/dL (0.0-0.2); Bilirubin, Total 0.6 mg/dL (0.2-1.0); CO2 25.6 mmol/L (21.0-32.0); CREATININE 0.7 mg/dL (0.70-1.30); Calcium 7.1 mg/dL (8.5-10.1); Chloride 104 mmol/L (98-107); Estimated GFR 123.23 (mL/min/1.73m2); Glucose 104 mg/dL (74-106); Magnesium 1.5 mg/dL (1.8-2.4); PHOSPHORUS 3.5 mg/dL (2.6-4.7); Potassium 3.1 mmol/L (3.5-5.1); Sodium 139 mmol/L (136-145); Total Protein 5.7 g/dL (6.4-8.2)
[2023-03-22] MEDS: Normal Saline 50 ML 100 ML (06:47)
[2023-03-22 07:11] LABS: Vitamin B12 268 pg/mL (193-986)
[2023-03-22 07:14] LABS: Folate > 20.0 ng/mL (8.6-20.0)
[2023-03-22] MEDS: MAGNESIUM SULFATE 4 GM/100 ML BAG IVPB (08:20)
[2023-03-22] MEDS: POTASSIUM CHLORIDE 10 MEQ/100 ML BAG 100 MEQ IVPB ×3 (08:24→12:48)
[2023-03-22] MEDS: Potassium Chloride Liquid 20 MEQ PKT 40 MEQ PO (08:27)
[2023-03-22] MEDS: Normal Saline Flush 10 ML SYR IVP ×2 (08:27→19:26)
[2023-03-22] MEDS: Pantoprazole 40 MG VIAL IVP (08:28)
[2023-03-22] MEDS: Multivitamin TAB 1 TAB PO (08:29)
[2023-03-22] MEDS: Thiamine 100 MG TAB PO (08:29)
[2023-03-22] MEDS: Sucralfate 1 GM TAB PO ×3 (08:30→16:49)
--- NOTE | 2023-03-22 08:30 | PDOC.CMIN ---
Date of service: 03/22/23 Time of Service: 08:30 Care Management Initial Assmt Initial Assessment REASON FOR HOSPITALIZATION:: hematemesis, ETOH PREVIOUS FUNCTIONAL STATUS/SOCIAL/FAMILY SUPPORTS:: Lyle lives alone in an apartment in [place], [place] 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 Lyle has a sister that he is close to and a half brother that he does not see as often as he is a bit younger. Lyle does not receive any community services and is independent at baseline. His mother and grandmother are both very involved with Lyle and supportive of his needs. CURRENT FUNCTIONAL STATUS:: Lyle was asleep in the ICU when CM came to see him. He is on the Phenobarbital [facility] protocol and had recently been medicated. His mother and grandmother were visiting and had questions about his treatment plan. They verbalized concern about Lyle being off of his psychiatric medications for a month and the resumption of drinking alcohol. His mother explained that he had been sober for over 2 years. His cousin about a month ago and it was then that Lyle stopped taking his medication and started drinking. Growing up Lyle was very close to his cousin. They were about the same age and were together much of the time. Although Lyle had not seen him as much in recent years, he was devastated to learn of the . His mother stated that Lyle has done well in sober house living and has attended various programs to help with his psychiatric issues (schizophrenia with paranoia and delusions) as well as with his alcohol use. She indicated that she hopes he will be able to enter some type of treatment when he is medically stable. CM informed her that he will be screened by [facility] screener at that time and an assessment will be made. Most likely he would have to agree to go voluntarily as he has not verbalized SI or HI so far. ADVANCE DIRECTIVES:: none on file Has patient been provided with info about the portal/API?: Yes Did the patient sign up for the portal?: Yes CODE STATUS:: Full Code INSURANCE COVERAGE / FINANCIAL ISSUES:: Medicaid X3 CURRENT HOME/COMMUNITY SERVICES/EQUIPMENT:: none currently PRIMARY CARE PHYSICIAN:: unknown POTENTIAL DISCHARGE NEEDS:: follow up with PCP and plan of care PATIENT/FAMILY EDUCATION NEEDS:: Review of discharge instructions, limitations, follow up plan, substance use treatment options, discuss Ask me Three TRANSPORTATION:: via private vehicle with family vs RCT PLAN:: Anticipate Lyle will be discharged home with no new services. He will follow up with his PCP and psychiatrist and discharge plan of care as prescribed. Lyle will transport via private vehicle vs RCT. CM will continue to support Lyle and assess for ongoing discharge concerns. 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) Hypokalemia (Acute) Homicidal ideation (Acute) [place] discharge 04/03/21 Threatening to others (Acute) Medical History (Updated 03/22/23 @ 09:57 by Celso Diaz MD) Alcohol withdrawal seizure Lab test positive for detection of COVID-19 virus (~05/2021) Surgical History (Updated 03/21/23 @ 22:15 by Azra Hurt MD) H/O bilateral inguinal hernia repair Family History (Updated 03/21/23 @ 22:17 by Azra Hurt MD) Paternal Grandmother Heart disease Paternal Grandfather Cancer leukemia Maternal Grandfather Cancer prostate cancern Hypertension Father Diabetes Alcohol use disorder Social History (Updated 03/21/23 @ 22:18 by Azra Hurt MD) Smoking/Tobacco Use Status: Former Tobacco Use tobacco type: cigarettes Quit status: quit date established (quit 12/07/20) Smoking risk assessment performed?: Yes Alcohol Intake: current Alcohol Intake frequency: 3 or more drinks per day Alcohol type: beer, wine and hard liquor Previous attempts at quittin Counseling given: Yes (talking with a counselor) Drug use: Occasionally Substance use type: former substance user and marijuana Details: vapes THC Adopted: No Caregiver/Support person: No Foster care: No Household members: other Details: sober housing Housing: apartment Number of Children: 0 Communication Needs: None Education Level: high school Do you need help understanding health information?: Rarely 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 [employer] Pets and animals: No Sexually active: No Do you think of yourself as: straight/heterosexual Current gender identity: male What is your relationship status?: never How often do you talk on the phone with friends or family?: decline to answer How often do you get together with friends or relatives?: decline to answer Panel score (0-1 are the most socially isolated patients): 0 Janna/Zoroastrian: Pentecostalism Special janna needs: No Seatbelt use: always Helmet use: Yes Helmet use: never Drive intox or ride w/intox sweeper driver: No Working smoke detector in home: Yes Fire extinguisher in home: Yes Carbon monox detector in home: Yes Do you feel safe at home: Yes Do you feel safe in your relationship?: Yes
[2023-03-22] MEDS: Folic Acid 1 MG TAB PO (08:37)
--- NOTE | 2023-03-22 08:47 | PGE_ITS ---
Date of Service Date of service: 03/22/23 Time of Service: 08:47 Assessment and Plan Assessment and plan (1) Hematemesis: Status: Acute Assessment and plan: likely d/t alcoholic gastritis; he has no hx of PUD nor varices. As he has had no further hematemesis since admission last night, I will advance his diet, continue protonix and carafate, monitor his blood counts; give prn antiemetics. If he has further hematemesis then will consult surgery for EGD and resume NPO status. Critical care time spent interviewing and examining the patient, reviewing studies, discussing case with patient's nurse and consulting physicians was 45 minutes (2) Alcohol withdrawal: Status: Acute Assessment and plan: hx of severe alcohol withdrawal in the past. He has been started on phenobarbital protocol however he was only started on the 6 mg/kg loading dose. His IBW is 70.46 kg and this would amount to total of 425 mg. he was begun w/ 40% of the loading dose which was 170 mg. He subsequently had doses of 128 mg x 2 and 130 mg x 2 for total of 686 mg which is 9.73 mg/kg which is closer to a more adequate loading dose of 10 mg/kg. His soft stop is calculated at 1056 mg (15 mg/kg) and his hard stop is 20 mg/kd (1410). He has recieved MVS and currently is getting K and Mg replacement. (3) Alcohol intoxication: Status: Acute Assessment and plan: As above (4) Schizophrenia: Status: Chronic Assessment and plan: patient has been off his meds for a month. When I asked him why he went off his meds, he says because he can not drink while on his antipsychotic meds. He also indicated that his meds caused him side effects, but when I asked him which ones and what side effects he could not specify. Qualifiers: Schizophrenia type: unspecified Qualified Code(s): F20.9 - Schizophrenia, unspecified (5) Depression: Status: Chronic Assessment and plan: we will have [facility] evaluate him and hopefuly they can set me up to discuss w/ his provider what meds he is suppose to be on Qualifiers: Depression Type: major depressive disorder Major depression recurrence: recurrent Active/Remission status: currently active Major depression episode severity: moderate Qualified Code(s): F33.1 - Major depressive disorder, recurrent, moderate (6) Anxiety: Status: Chronic Assessment and plan: as above (7) Hypokalemia: Status: Acute Assessment and plan: replete and monitor (8) Hypophosphatemia: Status: Acute Assessment and plan: replete and monitor (9) Metabolic acidosis, increased anion gap: Status: Resolved Assessment and plan: secondary to alcohol use; now resolved after hydration (10) Transaminitis: Status: Acute Assessment and plan: secondary to alcohol abuse; monitor (11) DVT prophylaxis: Status: Acute Assessment and plan: Not indicated in a 37 year old male. However, if his withdrawal is prolonged and he is nonambulatory, he would benefit from DVT prophylaxis. 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 Patient has a history of schizophrenia alcoholism. He first began drinking alcohol as a teenager years but has had abstinence. 2 to 5 years. He recently admitted to drinking heavily up to half a gallon of rum a day month ago when he quit taking his antipsychotic medications. This was precipitated by a in the family. Patient was admitted to the intensive care unit because of emergency history of alcoholic seizures. Patient denies history of seizures. Patient admits to previous episodes of severe alcohol withdrawal including hallucinations and tremors. Currently denies any auditory visual sedations. Did have nausea and vomiting yesterday including some hematemesis which has since lightheadedness emesis. He has had none since then. He has no known history of peptic ulcer disease. Currently he denies any abdominal pain chest pain dyspnea. Patient was seen present in room. After his family left the room while I was examining him, I specifically asked him about use of illicit drugs such as cocaine, heroin, fentanyl or amphetamines and he denies such use. He admits to vaping of marijiuana. Exam Narrative Exam Narrative: Lyle is alert and oriented to person/place and circumstances (I did not ask him date/time) He seems calm, and answers questions freely and directly Skin is slightly moist but not diaphoretic Hands w/out tremors HEENT: normal facial mimetic muscle movement, normal EOMI, no icterus and no nystagmus Lungs: clear Heart: RRR, w/o m,r,g Abdomen: soft, nontender, no organomegaly Extremities: normal ROM and strength, normal finger to nose testing; no tremors (note he is left handed) Objective Last Vital Signs Temp 37.4 C 03/22/23 04:00 Pulse 81 03/22/23 07:01 Resp 19 03/22/23 07:01 BP 117/72 03/22/23 07:01 Pulse Ox 94 03/22/23 08:34 Laboratory Results - last 24 hr 03/21/23 03/21/23 03/21/23 18:15 18:15 18:15 WBC 12.82 H RBC 6.05 H Hgb 17.9 H Hct 51.6 H MCV 85 MCH 29.6 MCHC 34.7 RDW 14.5 H Plt Count 407 H MPV 8.9 Immature Gran % 0.5 Neutrophils % 64.2 Lymphocytes % 24.7 Monocytes % 9.6 Eosinophils % 0.3 Basophils % 0.7 Nucleated RBC % 0.0 Absolute Neutrophils 8.23 H Absolute Lymphocytes 3.17 Absolute Monocytes 1.23 H Absolute Eosinophils 0.04 Absolute Basophils 0.09 Sodium 139 Potassium 3.0 L Chloride 99 Carbon Dioxide 21.5 Anion Gap 18.5 H BUN 10 Creatinine 1.1 Est GFR (CKD-EPI 2020) 89.78 Glucose 131 H Calcium 9.3 Phosphorus < 2.0 L Magnesium 1.9 Total Bilirubin 0.7 Conjugated Bilirubin AST 70 H ALT 100 H Alkaline Phosphatase 145 H Total Protein 8.1 Albumin 4.1 Vitamin B12 Folate Procalcitonin Urine Color Urine Clarity Urine pH Ur Specific [place] Urine Protein Urine Ketones Urine Blood Urine Nitrite Urine Bilirubin Urine Urobilinogen Ur Leukocyte Esterase Urine RBC Urine WBC Ur Epithelial Cells Urine Crystals Urine Bacteria Urine Casts Urine Mucus Ur Culture Indicated? Urine Glucose Urine Opiates Screen Urine Methadone Screen Ur Barbiturates Screen Ur Tricyclics Screen Ur Amphetamines Screen U Benzodiazepines Scrn Urine Cocaine Screen Ur THC Screen Ethyl Alcohol 450.2 H COVID-19 Source SARS-CoV-2 (PCR) Add-On Test Request 03/21/23 03/21/23 03/22/23 18:15 18:15 00:00 WBC RBC Hgb Hct MCV MCH MCHC RDW Plt Count MPV Immature Gran % Neutrophils % Lymphocytes % Monocytes % Eosinophils % Basophils % Nucleated RBC % Absolute Neutrophils Absolute Lymphocytes Absolute Monocytes Absolute Eosinophils Absolute Basophils Sodium Potassium Chloride Carbon Dioxide Anion Gap BUN Creatinine Est GFR (CKD-EPI 2020) Glucose Calcium Phosphorus Magnesium Total Bilirubin Conjugated Bilirubin AST ALT Alkaline Phosphatase Total Protein Albumin Vitamin B12 Folate Procalcitonin < 0.1 Urine Color Urine Clarity Urine pH Ur Specific [place] Urine Protein Urine Ketones Urine Blood Urine Nitrite Urine Bilirubin Urine Urobilinogen Ur Leukocyte Esterase Urine RBC Urine WBC Ur Epithelial Cells Urine Crystals Urine Bacteria Urine Casts Urine Mucus Ur Culture Indicated? Urine Glucose Urine Opiates Screen Negative Urine Methadone Screen Negative Ur Barbiturates Screen Negative Ur Tricyclics Screen Negative Ur Amphetamines Screen Negative U Benzodiazepines Scrn Negative Urine Cocaine Screen Negative Ur THC Screen Positive A Ethyl Alcohol COVID-19 Source SARS-CoV-2 (PCR) Add-On Test Request DONE 03/22/23 03/22/23 03/22/23 00:00 00:40 00:40 WBC RBC Hgb 15.4 D Hct 45.4 MCV MCH MCHC RDW Plt Count MPV Immature Gran % Neutrophils % Lymphocytes % Monocytes % Eosinophils % Basophils % Nucleated RBC % Absolute Neutrophils Absolute Lymphocytes Absolute Monocytes Absolute Eosinophils Absolute Basophils Sodium Potassium Chloride Carbon Dioxide Anion Gap BUN Creatinine Est GFR (CKD-EPI 2020) Glucose Calcium Phosphorus Magnesium Total Bilirubin Conjugated Bilirubin AST ALT Alkaline Phosphatase Total Protein Albumin Vitamin B12 Folate Procalcitonin Urine Color Yellow Urine Clarity Clear Urine pH 6.5 Ur Specific [place] 1.015 Urine Protein 100 H Urine Ketones 15 H Urine Blood Small H Urine Nitrite Negative Urine Bilirubin Negative Urine Urobilinogen 0.2 Ur Leukocyte Esterase Negative Urine RBC 3-5 H Urine WBC 0-2 Ur Epithelial Cells Rare Urine Crystals Negative Urine Bacteria Few Urine Casts Negative Urine Mucus Trace Ur Culture Indicated? No Urine Glucose Negative Urine Opiates Screen Urine Methadone Screen Ur Barbiturates Screen Ur Tricyclics Screen Ur Amphetamines Screen U Benzodiazepines Scrn Urine Cocaine Screen Ur THC Screen Ethyl Alcohol COVID-19 Source Nasal/Nares SARS-CoV-2 (PCR) Negative Add-On Test Request 03/22/23 03/22/23 03/22/23 05:45 05:45 05:45 WBC 6.99 RBC 4.65 Hgb 14.1 Hct 40.6 MCV 87 MCH 30.3 MCHC 34.7 RDW 14.8 H Plt Count 238 MPV 9.3 Immature Gran % 0.4 Neutrophils % 49.2 Lymphocytes % 40.3 Monocytes % 8.6 Eosinophils % 0.9 Basophils % 0.6 Nucleated RBC % 0.0 Absolute Neutrophils 3.44 Absolute Lymphocytes 2.82 Absolute Monocytes 0.60 Absolute Eosinophils 0.06 Absolute Basophils 0.04 Sodium 139 Potassium 3.1 L Chloride 104 Carbon Dioxide 25.6 Anion Gap 9.4 BUN 6 L Creatinine 0.7 Est GFR (CKD-EPI 2020) 123.23 Glucose 104 Calcium 7.1 L Phosphorus 3.5 Magnesium 1.5 L Total Bilirubin 0.6 Conjugated Bilirubin 0.2 AST 45 H ALT 67 H Alkaline Phosphatase 100 Total Protein 5.7 L Albumin 2.7 L Vitamin B12 268 Folate > 20.0 H Procalcitonin Urine Color Urine Clarity Urine pH Ur Specific [place] Urine Protein Urine Ketones Urine Blood Urine Nitrite Urine Bilirubin Urine Urobilinogen Ur Leukocyte Esterase Urine RBC Urine WBC Ur Epithelial Cells Urine Crystals Urine Bacteria Urine Casts Urine Mucus Ur Culture Indicated? Urine Glucose Urine Opiates Screen Urine Methadone Screen Ur Barbiturates Screen Ur Tricyclics Screen Ur Amphetamines Screen U Benzodiazepines Scrn Urine Cocaine Screen Ur THC Screen Ethyl Alcohol COVID-19 Source SARS-CoV-2 (PCR) Add-On Test Request PAWSS Have you Been Recently Intoxicated or Drunk Within the Last 30 days?: Yes Have you Ever Experienced Previous Episodes of Alcohol Withdrawal?: Yes Have you ever Experienced Withdrawal Seizures?: Yes Have you ever Experienced Delirium Tremens(DT)s?: Yes Have you ever undergone Alcohol Rehabilitation Treatment (i.e, inpt ot outpatient treatment programs)?: Yes Have you ever Experienced Blackouts?: Yes Have you ever Combined Alcohol with other Downers within the last 90 days?: Yes Have you ever Combined Alcohol with any other Substance of Abuse during the last 90 days?: Yes Positive Blood Alcohol level on Presentation? [PCS.BAL]: Yes Evidence of Increased Autonomic Activity (i.e. HR>120, tremor, sweating, agitation, nausea)?: Yes Result: 10 Time Spent with Patient Time Spent with Patient: 35-49 minutes Time was spent: preparing to see the patient(eg.review tests), obtaining and/or reviewing separately otained hiistory, ordering medications,tests, procedures, referring, communicating with other health care management coordinator, indepentently interpreting results, counseling the patient (And patient's family) and care coordination
[2023-03-22] MEDS: Ondansetron 4 MG/2 ML VIAL IVP ×2 (10:37→17:17)
[2023-03-22] MEDS: POTASSIUM CHLORIDE 10 MEQ/100 ML BAG 50 MEQ IVPB (10:37)
[2023-03-22] MEDS: Sertraline 100 MG TAB PO (14:23)
--- NOTE | 2023-03-22 14:27 | PHA.REVIEW2 ---
Pharmacy Admission Review Admission Clinical Review Admission Pharmacy Review: (Updated 03/22/23 @ 09:57 by Celso Diaz MD) Alcohol withdrawal (Acute) Transaminitis (Acute) Hypophosphatemia (Acute) Discharge planning issues (Acute) DVT prophylaxis (Acute) Alcohol intoxication (Acute) Hematemesis (Acute) Hypokalemia (Acute) No Known Allergies Allergy (Verified 03/21/23 18:15) Resuscitation Status Full Code Height 5 ft 9 in Weight 92.8 kg Comments Comments/Follow Ups: Watch HR, BP, mag, K+, labs, cumulative phenobarbital dosing and for med changes (possible home med orders) Pharmacy Admission Review Renal Dosing Renal Dosing: BUN 6 mg/dL (7-18) L 03/22/23 05:45 Creatinine 0.7 mg/dL (0.70-1.30) 03/22/23 05:45 Medications needing adjustments: Reviewed (Crcl ~165.7 mL/min current meds okay) Anticoagulation Anticoagulation: Hgb 14.1 g/dL (13.5-17.5) 03/22/23 05:45 Hct 40.6 % (40.0-50.0) 03/22/23 05:45 Plt Count 238 10^3/uL (130-400) 03/22/23 05:45 Creatinine 0.7 mg/dL (0.70-1.30) 03/22/23 05:45 DVT Prophylaxis: Reviewed (No indication for this currently per progress note) Opiate Usage Evaluate Pain Scale/Pains Meds: N/A Relevant Labs Relevant Labs: Sodium 139 mmol/L (136-145) 03/22/23 05:45 Potassium 3.1 mmol/L (3.5-5.1) L 03/22/23 05:45 Chloride 104 mmol/L (98-107) 03/22/23 05:45 Phosphorus 3.5 mg/dL (2.6-4.7) 03/22/23 05:45 Magnesium 1.5 mg/dL (1.8-2.4) L 03/22/23 05:45 Electrolytes, C-Reactive P, ESR: Intervened (PO and IV K+ ordered, IV mag ordered. I asked the provider if the phos replacement was still needed, it was discontinued as his level today was within normal limits.) DM Control DM Control: Glucose 104 mg/dL (74-106) 03/22/23 05:45 DM Control: Reviewed (No DM noted in pt's medical history, A1c from earlier this year 5.4) Cardiac Review BP, HR, EF%: Reviewed (HR has been elevated most of admission so far but has improved since admission. BP has been up and down some) QTc Review QTc: Reviewed (QTc 427 on admission) IV to PO Switch IV Medications: Reviewed Home Meds Home Med List reviewed: Reviewed (per telephamacy med rec the patient has not taken his medication for at least 3 weeks. Provider mentioned talking to [facility] prior to ordering home meds.) Current Meds Current Medication Order Review: Intervened (Discontinued duplicate med orders.) Comments Comments/Follow Ups: Watch HR, BP, mag, K+, labs, cumulative phenobarbital dosing and for med changes (possible home med orders)
[2023-03-22 14:30] LABS: Magnesium 2.3 mg/dL (1.8-2.4)
[2023-03-22] MEDS: Acetaminophen 325 MG TAB PO (14:32)
[2023-03-22 17:03] LABS: Potassium 3.5 mmol/L (3.5-5.1)
[2023-03-22] MEDS: Pantoprazole 40 MG TABCR PO (19:26)
[2023-03-22] MEDS: risperiDONE 1 MG TAB PO (19:26)
[2023-03-23] VITALS (24 sets, daily range): BP systolic 125–155; BP diastolic 75–107; PULSE 58–125; RESP 15–25; TEMP 36.4–37.2; O2SAT 93–98
[2023-03-23] MEDS: Sucralfate 1 GM TAB PO ×5 (01:12→20:10)
[2023-03-23] MEDS: Pantoprazole 40 MG TABCR PO ×2 (06:35→20:10)
[2023-03-23 07:19] LABS: Abs Immature Grans 0.04 10^3/uL (0.0-0.06); Absolute Basophil Count 0.06 10^3/uL (0.0-0.2); Absolute Eosinophil Count 0.23 10^3/uL (0.0-0.7); Absolute Lymphocyte Count 1.42 10^3/uL (1.2-3.4); Absolute Monocyte Count 0.61 10^3/uL (0.1-0.8); Absolute Neutrophil Count 4.17 10^3/uL (1.2-6.7); Basophils % 0.9; Eosinophils % 3.5; HCT 42.7 % (40.0-50.0); HGB 14.7 g/dL (13.5-17.5); Immature Grans % 0.6; Lymphocytes % 21.7; MCH 30.2 pg (27.0-33.0); MCHC 34.4 % (32.0-36.0); MCV 88 fL (80-95); MPV 9.7 fL (8.0-11.0); Monocytes % 9.3; Platelet Count 207 10^3/uL (130-400); RBC 4.87 10^6/uL (4.36-5.78); RDW 14.6 % (11.8-14.1); RDW-SD 45.6 fL; WBC 6.53 10^3/uL (4.4-10.8)
[2023-03-23 07:42] LABS: ALT 67 U/L (16-63); AST 46 U/L (15-37); Alkaline Phosphatase 114 U/L (46-116); Anion Gap 7.4 mmol/L (3-11); BUN 5 mg/dL (7-18); Bilirubin, Total 1.5 mg/dL (0.2-1.0); CO2 26.6 mmol/L (21.0-32.0); CREATININE 0.8 mg/dL (0.70-1.30); Calcium 8.2 mg/dL (8.5-10.1); Chloride 101 mmol/L (98-107); Estimated GFR 118.36 (mL/min/1.73m2); Glucose 83 mg/dL (74-106); Magnesium 2.1 mg/dL (1.8-2.4); PHOSPHORUS 2.1 mg/dL (2.6-4.7); Potassium 4.1 mmol/L (3.5-5.1); Sodium 135 mmol/L (136-145); Total Protein 6.5 g/dL (6.4-8.2)
--- NOTE | 2023-03-23 08:24 | W.PM.PROGNOT ---
Date of Service Date of service: 03/23/23 Time of Service: 08:25 Assessment and Plan Assessment and plan (1) Hematemesis: Status: Acute Assessment and plan: no further hematemesis. Likely this was secondary to alcoholic gastritis. H&H stable. continue po protonix and carafate; continue regular diet; transfer out of ICU to med/surg; dc telemetry (no arrhythmias, remains NSR); no indication for urgent EGD. (2) Alcohol withdrawal: Status: Acute Assessment and plan: patient CIWA scores have been low 2 to 3. has not needed prn dose of phenobarbital since yesterday morning. He has had total of 816 mg (11.6 mg/kg) , His hard stop for total phenobarbital is 20 mg/kg or 1410 mg and soft stop of 15 mg/kg or 1056 mg. (3) Schizophrenia: Status: Chronic Assessment and plan: patient has been off his meds for a month.I spoke w/ Rosendo Antunez NP from [facility] yesterday and she recommended resumption of his Risperdal at low dose 1 mg bid for a day or two then increase to 1 mg qam and 2 mg qpm, and to start his Sertraline at 100 mg daily but to hold off Abilify until he is seen in the clinic. She also feels he should be a [employer] client for closer monitoring. When I did drug interaction using UpToDate, I found that phenobarbital which is a potent inducer of CY, this can lower the concentration of Risperdal thus making it less effective so I think that we can uptitrate his Risperdal a little faster. He had been on 4 mg bid. I will proceed w/ Risperdal 1 mg this morning and 2 mg tonight and if he remains hospitalized tomorrow I will increase to Risperdal 2 mg bid. Qualifiers: Schizophrenia type: unspecified Qualified Code(s): F20.9 - Schizophrenia, unspecified (4) Depression: Status: Chronic Assessment and plan: I have requested formal consult from [facility] to evaluate him as he is medically cleared. I restarted his Sertraline yesterday. Qualifiers: Active/Remission status: currently active Depression Type: major depressive disorder Major depression episode severity: moderate Major depression recurrence: recurrent Qualified Code(s): F33.1 - Major depressive disorder, recurrent, moderate (5) Anxiety: Status: Chronic Assessment and plan: as above (6) DVT prophylaxis: Status: Acute Assessment and plan: Not indicated in a 37 year old male. However, if his withdrawal is prolonged and he is nonambulatory, he would benefit from DVT prophylaxis. (7) Discharge planning issues: Status: Acute Assessment and plan: probably dc in the next 24 hours as he is not showing signs of withdrawal at this point and has not had any significant GI bleeding. I will continue protonix and carafate upon discharge and he can be referred to surgical service as outpatient for outpatient EGD. Subjective Subjective Interval history since last seen: Lyle feels nauseated this morning but denies any abdominal pain or vomiting. No tremors and no hallucinations. Per nursing his CIWA scores have been low (2 to 3 ) overnight and he has not required anymore prn dosing of phenobarbital since yesterday at 11:30 am. I think he is through the worst of his alcohol withdrawal and can be moved to med/surg status; possibly return home later today or tomorrow morning at latest Exam Narrative Exam Narrative: Lyle is alert and oriented, no tremors, no diaphoresis Lungs: clear heart: RRR Abdomen: soft, nontender, normal bowel sounds Psychiatric: not hallucinating, not expressing any SI Objective Last Vital Signs Temp 36.7 C 03/23/23 04:24 Pulse 69 03/23/23 07:01 Resp 18 03/23/23 07:01 BP 131/75 03/23/23 07:01 Pulse Ox 97 03/23/23 07:01 Laboratory Results - last 24 hr 03/22/23 03/22/23 03/23/23 14:07 16:38 06:05 WBC RBC Hgb Hct MCV MCH MCHC RDW Plt Count MPV Immature Gran % Neutrophils % Lymphocytes % Monocytes % Eosinophils % Basophils % Nucleated RBC % Absolute Neutrophils Absolute Lymphocytes Absolute Monocytes Absolute Eosinophils Absolute Basophils Sodium 135 L Potassium 3.5 4.1 Chloride 101 Carbon Dioxide 26.6 Anion Gap 7.4 BUN 5 L Creatinine 0.8 Est GFR (CKD-EPI 2020) 118.36 Glucose 83 Calcium 8.2 L Phosphorus 2.1 L Magnesium 2.3 2.1 Total Bilirubin 1.5 H AST 46 H ALT 67 H Alkaline Phosphatase 114 Total Protein 6.5 Albumin 3.0 L 03/23/23 06:05 WBC 6.53 RBC 4.87 Hgb 14.7 Hct 42.7 MCV 88 MCH 30.2 MCHC 34.4 RDW 14.6 H Plt Count 207 MPV 9.7 Immature Gran % 0.6 Neutrophils % 64.0 Lymphocytes % 21.7 Monocytes % 9.3 Eosinophils % 3.5 Basophils % 0.9 Nucleated RBC % 0.0 Absolute Neutrophils 4.17 Absolute Lymphocytes 1.42 Absolute Monocytes 0.61 Absolute Eosinophils 0.23 Absolute Basophils 0.06 Sodium Potassium Chloride Carbon Dioxide Anion Gap BUN Creatinine Est GFR (CKD-EPI 2020) Glucose Calcium Phosphorus Magnesium Total Bilirubin AST ALT Alkaline Phosphatase Total Protein Albumin PAWSS Have you Been Recently Intoxicated or Drunk Within the Last 30 days?: Yes Have you Ever Experienced Previous Episodes of Alcohol Withdrawal?: Yes Have you ever Experienced Withdrawal Seizures?: Yes Have you ever Experienced Delirium Tremens(DT)s?: Yes Have you ever undergone Alcohol Rehabilitation Treatment (i.e, inpt ot outpatient treatment programs)?: Yes Have you ever Experienced Blackouts?: Yes Have you ever Combined Alcohol with other Downers within the last 90 days?: Yes Have you ever Combined Alcohol with any other Substance of Abuse during the last 90 days?: Yes Positive Blood Alcohol level on Presentation? [PCS.BAL]: Yes Evidence of Increased Autonomic Activity (i.e. HR>120, tremor, sweating, agitation, nausea)?: Yes Result: 10 Time Spent with Patient Time Spent with Patient: 35-49 minutes Time was spent: preparing to see the patient(eg.review tests), ordering medications,tests, procedures, indepentently interpreting results, counseling the patient and care coordination
[2023-03-23] MEDS: Thiamine 100 MG TAB PO (08:45)
[2023-03-23] MEDS: risperiDONE 1 MG TAB PO ×2 (08:45→20:10)
[2023-03-23] MEDS: Sertraline 100 MG TAB PO (08:45)
[2023-03-23] MEDS: Folic Acid 1 MG TAB PO (08:46)
[2023-03-23] MEDS: Multivitamin TAB 1 TAB PO (08:47)
[2023-03-23 10:39] LABS: Hepatitis A Antibody IgM Negative (Negative); Hepatitis B Core Antibody Negative (Negative); Hepatitis B surface Ag Negative (Negative); Hepatitis C Ab w Rflx HCV PCR Negative (Negative)
--- NOTE | 2023-03-23 11:02 | PDOC.CMPRO ---
Date of service: 03/23/23 Time of Service: 11:03 Care Management Progress Note Progress Note Text Progress Note Text: S/O:Lyle was lying in bed when CM met with him today. He was a bit sleepy but much more responsive than yesterday. CM informed him that a milking worker from [facility] would be coming to meet with him this afternoon to discuss his depression. CM asked if he would be willing to seek inpatient treatment if recommended and he stated he would. Later [place] ([facility]) met with him and will develop a safety plan when Lyle is ready for discharge. He has no suicidal thoughts so it was determined that he would be safe to go home with a plan.CM also contacted a addictions recovery specialist who met with him today. Lyle has learned that there are AA meetings held right behind his apartment in [place]. As he has no car, that will remove the transportation barrier to attending the meetings. Lyle's mother and grandmother visited again today and remain very involved and supportive. A:Lyle is a 37 year old male admitted on 03/21/23 with ETOH withdrawal P:Anticipate Lyle will be discharged home with no new services. He will follow up with his PCP and psychiatrist and discharge plan of care as prescribed. Lyle will transport via private vehicle vs RCT. CM will continue to support Lyle and assess for ongoing discharge concerns.
--- NOTE | 2023-03-23 17:52 | PDOC.MHCN_ITS ---
Date of service: 03/23/23 Time of Service: 01:00 PHQ-9 Over the last 2 weeks, how often have you been bothered by any of the following problems? 1. Little interest or pleasure in doing things: several days 2. Feeling down, depressed, or hopeless: several days 3. Trouble falling or staying asleep, or sleeping too much: not at all 4. Feeling tired or having little energy: not at all 5. Poor appetite or overeating: not at all 6. Feeling bad about yourself - or that you are a failure or have let yourself and your family down: not at all 7. Trouble concentrating on things, such as reading the newspaper or watching television: several days 8. Moving or speaking so slowly that other people could have noticed? - Or the opposite - being so fidgety or restless that you have been moving around a lot more than usual: not at all 9. Thoughts that you would be better off or of hurting yourself in some way: not at all Total score: 3 Source: Developed by Drs. Arnav Zuniga, Maria Del Carmen Sanchez, Jaswant Melgar and colleagues, with an educational aris from [employer]. Suicide Severity Rate CSSRS Have you wished you were or wished you could go to sleep and not wake up?: No Have you actually had any thoughts of killing yourself?: No CSSRS2 Have you been thinking about how you might do this?: No Have you had these thoughts and had some intention of acting on them?: No Have you started to work out or worked out the details of how to kill yourself? Do you intend to carry out this plan?: No CSSRS3 Have you ever done anything, started to do anything or prepared to do anything to end your life?: No Screening Score Total Score: 0 Screening: Negative Mental Health Emergency Note Release [facility] release signed:: Yes Reason for Visit Struggling with alcoholism, got very sick and depressed In the last 2 weeks has the pt presented for ES prior to today?: No Client Information Well Housed: Yes Non Suicidal Self Injury Current: No History: No Safety Risk/Harm to Self or Others Current Ideation to Harm Self or Others: No Risk: Does risk to harm exist?: yes. Risk: Low Risk Duty to warn indicated: Yes Asssessment/Mental Status Appearance: Other Attitude: Passive and Friendly Behavior: Other Speech: Soft and Slow Affect: Cogruent with mood Mood: Sad, Stressed and Anxious Thought process: Poverty of content Hallucinations: No Delusions: No Attention: Wandering Perception: Not impaired Orientation: Fully orientated Memory: Intact Insight: Fair Judgement: Fair Neurovegetative Symptoms Sleep: No change Appetitie: No change Interests: No change Energy: Decrease Libido: Not applicable Substance Use: ETOH dependence, Intoxication and Blood alcohol level Drug Issues: Dependence Do you use nicotine?: Yes Have you used substances in the last 7 days?: yes, weekly Additional Issues: Assaultive/Threatening Behavior: No Medical Concerns: No Client engaged in active self harm w/weapon: No Threatening to run away: No Child reported abuse/neglect: No Voluntarily presenting for services: Yes Domestic violence is a concern: No Extreme Psychosis or extreme behavior is present: No Impression Client will go home with Safety Plan and will folllow through with seeking out a therapsit from [facility]. a referral has already been made. Plan/Disposition Recommended Disposition: PCP/Office visit, [facility] Services (addiction counseling) [facility] Services: Therapy, Therapy, Med management, Community resources and Other. Plan: Safety planned home Reports/communication Outcome discussed with: ED/Personnel and Other
--- NOTE | 2023-03-24 03:41 | NUR.NOTE ---
Nursing Note: Patient awake. Voided per urinal. No complaints.
[2023-03-24 07:00] VITALS: TEMP 37.1
[2023-03-24] MEDS: Sucralfate 1 GM TAB PO ×2 (07:18→11:18)
[2023-03-24] MEDS: Pantoprazole 40 MG TABCR PO (07:18)
[2023-03-24 07:21] VITALS: BP 136/99; PULSE 97
[2023-03-24] MEDS: Sertraline 100 MG TAB PO (08:49)
[2023-03-24] MEDS: risperiDONE 1 MG TAB PO (08:49)
[2023-03-24] MEDS: Folic Acid 1 MG TAB PO (08:49)
[2023-03-24] MEDS: Thiamine 100 MG TAB PO (08:49)
[2023-03-24] MEDS: Multivitamin TAB 1 TAB PO (08:49)
--- NOTE | 2023-03-24 09:23 | TELEP.MEDREC ---
Date of service: 03/24/23 Time of Service: : Telepharmacy Home Med Rec Allergies Allergies: No Known Allergies Allergy (Verified 03/21/23 18:15) Quality Quality of Interview/Accuracy of Medication List: Poor Sources Sources used to compile medication list: [employer] Medication List, Retail Pharmacy and Patient List Changes made to Home Medication List: ADDITIONS: asdf jkl; DELETIONS: none CHANGES: atenolol 50mg PO daily metformin 500mg PO BID Recommended Changes Attestation: The home medication list is now updated to the best of my knowledge and is ready to be reconciled by the provider. Please contact the TelePharmacy Medication Reconciliation Pharmacist at for any questions.
--- NOTE | 2023-03-24 12:17 | W.PM.DS.N ---
Date of service: 03/24/23 Time of Service: 12:17 DS: Diagnosis Discharge Diagnosis (1) Hematemesis: Status: Acute (2) Alcohol withdrawal: Status: Acute (3) Schizophrenia: Status: Chronic (4) Depression: Status: Chronic (5) Anxiety: Status: Chronic (6) DVT prophylaxis: Status: Acute (7) Discharge planning issues: Status: Acute Discharge Plan Disposition Patient Disposition: Home Condition: Good Discharge Details Reason For Visit: Hematesmesis,EtOH intoxication w/ h/o withdrawal s Admit Date/Time: 03/21/23 20:10 Admit Provider: Azra Hurt Attending Provider: Azra Hurt Primary Care Provider: Unknown,Unknown Hospital Course Hospital Course: 37 yr old male w/ PMH of schizophrenia, and alcohol abuse who quit taking his psychiatric meds about one month ago and went off all his meds (Abilify, Wellbutrin, clonidine, sertraline, vistaril) and he began drinking as much as half a gallon of liquor daily. He presented to the ED w/ symptoms of hematemesis (blood tinged emesis), tremors, slurred speech, labile mood swings, and was found to be acutely intoxicated w/ blood alcohol level of 450 mg/dL and urine drug screen + for THC but negative for everythying else. CBC was consistent w/ dehydration w/ mildly elevated WBC 12,800 and Hb 17.9 gm and CMP showing metabolic acidosis w/ AG 18, low K 3.0, low phosphorus <2.0 and low magnesium 1.5. and transaminitis w/ AST 70, ALT 100, ALK PHOS 145. Patient was begun on phenobarbital protocol at loading dose of 6 mg/kg IBW and given antiemetics, iv protonix, po carafate and given both parenteral and oral electrolyte replacement of potassium, magnesium and phophorus. Daily labs were monitored his low K and low Mg and low PO4 were corrected. His transaminitis improved. He was monitored on CIWA protocol and given supplemental folic acid and thiamine. He never went into severe withdrawal although he did get some suppplemental prn doses of phenobarbital. Over past 48 hours prior to discharge he has not required any additional phenobarbital. [facility] was contacted for advice about restarting his antipsychotic medications. He was begun on Sertraline 100 mg daily and Risperdal was begun 1 mg bid but will be increased to 1 mg qam and 2 mg qpm. Patient was being set up for follow up at [facility] for further outpatient psychiatric care and CM was going to set him up w/ new PCP, however patient's mother has set him up for entry into alcohol inpatient recovery program [facility]. Home Meds and New Rx's Prescriptions: New pantoprazole [Protonix] [address] for susp in packet 40 mg PO BID Qty: 60 0RF sucralfate [Carafate] 1 gram tablet 1 g PO QACHS Qty: 120 0RF sertraline 100 mg tablet 100 mg PO DAILY Qty: 30 0RF risperidone 1 mg tablet See Rx Instructions .ROUTE .COMPLEX Qty: 30 0RF Rx Instructions: 1 mg orally in the morning and 2 mg in the evening Discontinued clonidine 0.1 mg/24 hr patch weekly 1 patch transdermal QWEEK Qty: 4 1RF Patient Comments: Pt states he hasn't taken medication in over 3 weeks Rx Instructions: apply one patch a week to clean dry skin where you don't bend; rotate sites melatonin 3 mg tablet 9 mg PO HS PRN (Reason: sleep) Qty: 90 0RF Patient Comments: Pt states he hasn't taken medication in over 3 weeks Rx Instructions: 05/01/21-pt reports he takes 9mg qhs on discharge 04/03/21 [facility] hydroxyzine HCl 25 mg tablet 50 mg PO QHS PRN (Reason: sleep) Qty: 180 3RF Patient Comments: Pt states he hasn't taken medication in over 3 weeks sertraline 100 mg tablet 100 mg PO DAILY Patient Comments: Pt states he hasn't taken medication in over 3 weeks Rx Instructions: #30 filled on 04/03/[facility] risperidone [Risperdal] 4 mg tablet 4 mg PO BID Qty: 60 0RF Patient Comments: Pt states he hasn't taken medication in over 3 weeks aripiprazole [Abilify] 5 mg tablet 5 mg PO DAILY Patient Comments: Pt states he hasn't taken medication in over 3 weeks clonidine HCl 0.1 mg tablet 0.1 mg PO TID PRN Patient Comments: Pt states he hasn't taken medication in over 3 weeks Rx Instructions: Dione Bojorquez [employer]/HAN bupropion HCl [Wellbutrin XL] 150 mg tablet extended release 24 hr 150 mg PO QAM Patient Comments: Pt states he hasn't taken medication in over 3 weeks Rx Instructions: tale qam w/300mg for a total of 450mg qam. Dione Bojorquez MANAGER [employer]/HAN bupropion HCl [Wellbutrin XL] 300 mg tablet extended release 24 hr 300 mg PO QAM Patient Comments: Pt states he hasn't taken medication in over 3 weeks Rx Instructions: take qam w/150mg for a total of 450 mg Dione Maryellen MANAGER [employer]/HAN Discharge Instructions Instructions: Sucralfate (By mouth), Sertraline (By mouth), Risperidone (By mouth), Pantoprazole (By mouth), Alcohol Withdrawal (DC), Hematemesis (GEN) Additional Instructions: you were treated for acute alcohol withdrawal and for hematemesis (vomiting of blood). Your blood count was monitored and you never became anemic. YOu nausea was controlled w/ zofran and compazine and you were given iv fluids and you were started on protonix and carafate for you stomach. Because of concern for acute alcohol withdrawal, you were started on phenobarbital which you did very well with and you did not go into severe withdrawal symptoms. We contacted [facility] for you and discussed your treatment for your schizophrenia and they recommended resumption of your Sertraline and risperdal. Prescriptions for all of the above have been sent to [facility] in [place]. As you do not have a primary care provider but you need one, care management has assigned a provider from a pool of primary care providers and assigned you to the one who was section leader screen printing the day you presented to the hospital. It is important that you keep follow up so they can monitor your response to your medications and if needed make further referrrals if needed. If you have further emesis of blood or have black stools or blood in your stools then you will need further evaluation w/ endoscopy. It is equally important that you follow up w/ [facility] so that a psychiatric nurse practitioner or psychiatrist and monitor your medication response for your schizophrenia. We have learned that your mother has set you up to enter into an inpatient alcohol recovery program [facility]. When you are discharged they will assist you with psychiatric outpatient follow up. You can call [facility] case management upon discharge and they will assist in finding a primary care provider Activity:: Activity as Tolerated Equipment/Supplies:: No Equipment Needed Diet:: Normal Diet DS: Summary Time Spent with Patient providing and/or coordinating discharge services: Greater than 30 minutes Status at Discharge Functional status at discharge: independent ambulation Overall status at discharge: patient is back to baseline Mental Status: mental status grossly normal Speech and Movement: speech and movement normal Mood: congruent mood Affect: normal affect Exam Narrative Exam Narrative: Lyle is alert and oriented, he is very forward thinking, he says he feels much better. no nausea or vomiting, no further hematemesis Abdomen is nontender Psych Mental Status: mental status grossly normal Speech and Movement: speech and movement normal Mood: congruent mood Affect: normal affect DS: Data Vitals/I&O Vitals and I&O: Vital Signs Temperature 37.1 C 03/24/23 07:00 Temperature Source Temporal Artery Scan 03/24/23 07:00 Pulse 97 H 03/24/23 07:21 Pulse Rhythm Regular 03/24/23 07:00 Pulse 97 H 03/23/23 17:02 Respiratory Rate 16 03/23/23 23:00 Respiratory Effort Normal, Non-Labored 03/24/23 07:00 Respiratory Depth Normal 03/24/23 07:00 Respiratory Pattern Normal 03/24/23 07:00 Blood Pressure 136/99 H 03/24/23 07:21 Blood Pressure Mean 108 03/24/23 07:21 Blood Pressure Position Supine 03/23/23 04:24 Pulse Oximetry 95 03/23/23 23:00 Oxygen Delivery Method Room Air 03/24/23 07:00 Oxygen Flow Rate 0 03/24/23 07:00 Pain Level 0 03/24/23 07:00 Comment Patient Coughing and deep breathing spontaneously, declined IS at this time. 03/23/23 23:00 Intake & Output 03/23/23 03/24/23 03/24/23 23:59 11:59 23:59 Intake Total 730 / 1090 Output Total 1275 / 2725 450 / 450 Balance -545 / -1635 -450 / -450 Intake: Oral 730 / 1090 Output: Urine 1275 / 2725 450 / 450 Other: Urine Color Light Georgina Light Georgina Urine Appearance Sediment Clear Urine Odor None Voiding Methods Urinal PFSH All Active Problems Alcohol withdrawal (Acute) Transaminitis (Acute) Hypophosphatemia (Acute) Discharge planning issues (Acute) DVT prophylaxis (Acute) Alcohol intoxication (Acute) Hematemesis (Acute) Schizophrenia (Chronic) Nicotine dependence, other tobacco product, in remission (Chronic) Depression (Chronic) Anxiety (Chronic) Alcohol dependence in early full remission (Chronic) 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) Hypokalemia (Acute) Homicidal ideation (Acute) [place] discharge 04/03/21 Threatening to others (Acute) Medical History Alcohol withdrawal seizure Lab test positive for detection of COVID-19 virus (~05/2021) Surgical History H/O bilateral inguinal hernia repair Family History Paternal Grandmother Heart disease Paternal Grandfather Cancer leukemia Maternal Grandfather Cancer prostate cancern Hypertension Father Diabetes Alcohol use disorder Social History Smoking/Tobacco Use Status: Former Tobacco Use tobacco type: cigarettes Quit status: quit date established (quit 12/07/20) Smoking risk assessment performed?: Yes Alcohol Intake: current Alcohol Intake frequency: 3 or more drinks per day Alcohol type: beer, wine and hard liquor Previous attempts at quittin Counseling given: Yes (talking with a counselor) Drug use: Occasionally Substance use type: former substance user and marijuana Details: vapes THC Adopted: No Caregiver/Support person: No Foster care: No Household members: other Details: sober housing Housing: apartment Number of Children: 0 Communication Needs: None Education Level: high school Do you need help understanding health information?: Rarely 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 [employer] Pets and animals: No Sexually active: No Do you think of yourself as: straight/heterosexual Current gender identity: male What is your relationship status?: never How often do you talk on the phone with friends or family?: decline to answer How often do you get together with friends or relatives?: decline to answer Panel score (0-1 are the most socially isolated patients): 0 Janna/Christian: Holiness Special janna needs: No Seatbelt use: always Helmet use: Yes Helmet use: never Drive intox or ride w/intox cdl company driver: No Working smoke detector in home: Yes Fire extinguisher in home: Yes Carbon monox detector in home: Yes Do you feel safe at home: Yes Do you feel safe in your relationship?: Yes Time Spent with Patient Time Spent with Patient: 45-69 minutes Time was spent: preparing to see the patient(eg.review tests), obtaining and/or reviewing separately otained hiistory, ordering medications,tests, procedures, referring, communicating with other health director of health care marketing, counseling the patient and care coordination
--- NOTE | 2023-03-24 13:46 | CMDISCH_ITS ---
Date of service: 03/24/23 Time of Service: 13:46 LACE Index Scoring Tool Questions: Length of Stay (in days): 3 Was the patient admitted via the E.D.?: Yes Comorbidities: Liver or Renal Disease E.D. Visits: 2 Answers: Total Score: 13 Risk of Readmission: High Risk Care Management Discharge Plan Reason for Hospitalization: hematemesis, ETOH Discharge Plan: Lyle will be discharged home accompanied by his mother and grandmother today. Tomorrow he is scheduled to be admitted to [facility] in [place], [place]. It is an inpatient program that can address clients with dual diagnoses (substance use and mental health concerns). Lyle will follow up with [facility] where his last PCP was located and re-establish with that practice or transfer to [facility] which is located in [place] where he lives. His mother will transport him home via private vehicle. Patient/Family Education Needs: Review of discharge instructions, limitations, follow up plan, substance use treatment options, discuss Ask me Three MH Services (Omit if N/A) Current MH Services: [facility]
--- NOTE | 2023-03-24 15:27 | CHAPLAIN ---
Lyle was resting in bed when I visited this afternoon. He told me he's being discharged home later today and then will be going to recovery/treatment center in [place]. Family members will be picking him up. Lyle seemed agreeable and pleased with the plan.
[2023-05-31 13:39] LABS: HBs Antibody, Quant 23.3 mIU/mL (See Note); Hepatitis B Surface Ab Positive (See Note)
== END 2023-03-24 14:25 | disposition home or self-care (01) | DRG 896 ==
LOC: ER 20:57 → ICU 03-22 01:53
PROVIDERS: Internal Medicine; Admitting Provider Internal Medicine; Emergency Provider Nurse Practitioner Family; Visit Provider Internal Medicine
DX: F10.229 Alcohol dependence with intoxication, unspecified (principal); K29.21 Alcoholic gastritis with bleeding; E87.29 Other acidosis; F33.1 Major depressive disorder, recurrent, moderate; F10.239 Alcohol dependence with withdrawal, unspecified; F20.9 Schizophrenia, unspecified; F41.9 Anxiety disorder, unspecified; E87.6 Hypokalemia; E83.39 Other disorders of phosphorus metabolism; R74.01 Elevation of levels of liver transaminase levels; E86.0 Dehydration; Y90.8 Blood alcohol level of 240 mg/100 ml or more; F51.05 Insomnia due to other mental disorder; Z87.891 Personal history of nicotine dependence; F12.90 Cannabis use, unspecified, uncomplicated; E83.42 Hypomagnesemia
CPT/HCPCS: 36415; 80048; 80053; 80076; 80307; 84145; 86704; 86706; 86709; 86803; 87340; 87635; 96361; 96374; 96375; 99285; 71045; 74018; 76700; 80320; 81003; 81015; 82607; 82746; 83735; 84100; 84132; 85014; 85018; 85025; 93005; 93010; 99232; 99239; 99291; J2060; J2405; J2560; J3475; J3480; J3490